=== PATIENT | male | born 1960 | race Caucasian/White ===

== ENCOUNTER 2017-09-12 09:16 | Emergency (ER) | payer SELFPAY ==
[2017-09-12 09:21] VITALS: RESP 18
--- NOTE | 2017-09-12 09:30 | CPEKG ---
Heart Rate: 69 RR Interval: 870 P-R Interval: 180 QRSD Interval: 76 QT Interval: 376 QTC Interval: 403 P [place]: 65 QRS [place]: 39 T Wave [place]: 38 EKG Severity - NORMAL ECG - EKG Impression: SINUS RHYTHM Electronically Signed By: Izzy Aguila 12-Sep-2017 15:29:57
[2017-09-12] MEDS ORDERED: NS 1,000 ML IV ONE (09:31)
[2017-09-12 09:40] LABS: PLATELET COUNT 233 10^3/uL (150-400)
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
[2017-09-12 11:13] VITALS: BP 146/97; PULSE 83; TEMP 98.2; O2SAT 96
== END 2017-09-12 11:12 | disposition home or self-care (01) ==
DX: R56.9 Unspecified convulsions (principal); F17.200 Nicotine dependence, unspecified, uncomplicated; E86.9 Volume depletion, unspecified

== ENCOUNTER → 2017-10-23 | Outpatient (CLI) | payer MEDICAID ==
--- NOTE | 2017-10-24 10:59 | CPEEG ---
[f rep st] ELECTROENCEPHALOGRAM DATE OF STUDY: 10/23/2017 INTERPRETATION: This EEG is abnormal due to the presence of potentially epileptogenic abnormalities over the right temporal head region. 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 In addition, there is a mild degree of focal slowing over the right temporal head region. These findings are consistent with a mild focal disturbance of cerebral function in these regions. REPORT: This EEG contained 9 Hz alpha activity over the posterior head regions. There was a mild degree of focal slowing over the right temporal head region consisting of intermittent polymorphic theta frequency activity. The primary feature of this recording was the presence of right temporal sharp waves , maximal at electrodes T4 and F8. These were present at baseline with continued activation during drowsiness and sleep. There was no additional activation with photic stimulation or hyperventilation. The findings of this EEG were communicated directly with the primary neurologic provider, NICOLLE Castro. /[id number]/MODL MTDD
== END ==
LOC: FCPNEURO 10:14
PROVIDERS: ATTEND Psychiatry & Neurology Neurology
DX: R40.4 Transient alteration of awareness (principal); R94.09 Abnormal results of other function studies of central nervous system

== ENCOUNTER → 2018-01-27 | Outpatient (CLI) | payer MEDICAID | LOC: FIMAGING 14:18 | PROVIDERS: ATTEND Surgery | DX: R22.1 Localized swelling, mass and lump, neck (principal) ==

== ENCOUNTER 2018-02-11 06:31 | Day surgery (SDC) | payer MEDICAID ==
[2018-02-11] MEDS ORDERED: LR 1,000 ML IV ONE (06:44)
[2018-02-11] MEDS ORDERED: NA BICARBONATE 50 MEQ/50 ML VIAL ONE (06:58)
[2018-02-11] MEDS ORDERED: BUPIVACAINE 0.25% 30 ML SDV ONE (06:58)
[2018-02-11] MEDS ORDERED: LIDOCAINE 1% 300 MG/30 ML SDV ONE (06:58)
[2018-02-11] MEDS ORDERED: MIDAZOLAM 2 MG/2 ML VIAL IVP ONE (08:07)
[2018-02-11] MEDS ORDERED: ceFAZolin 2 GM/DEXTROSE 100 ML IV ONE (08:13)
--- NOTE | 2018-02-11 08:13 | PDHPUP ---
History & Physical Update H&P update statement: This history and physical update is based on an assessment of the patient which was completed after admission or registration (within 24 hours), but prior to the surgery/procedure. H&P update: H&P reviewed & patient examined, no change in patient's condition since H&P completed
[2018-02-11] MEDS ORDERED: MIDAZOLAM 2 MG/2 ML VIAL ONE (08:14)
--- NOTE | 2018-02-11 08:14 | PDANEPAE ---
ANE History of Present Illness Right neck mass ANE Past Medical History - Cardiovascular History Hx Hypertension: No Hx Arrhythmias: No Hx Chest Pain: No Hx Coronary Artery / Peripheral Vascular Disease: No Hx CHF / Valvular Disease: No Hx Palpitations: No - Pulmonary History Hx COPD: No Hx Asthma/Reactive Airway Disease: No Hx Recent Upper Respiratory Infection: No Hx Oxygen in Use at Home: No Hx Sleep Apnea: No Sleep Apnea Screening Result - Last Documented: Negative - Neurologic History Hx Cerebrovascular Accident: No Hx Seizures: Yes Hx Dementia: No Neurologic History Comment: vimpat - Endocrine History Hx Diabetes: No Hypothyroid: No Hyperthyroid: No - Renal History Hx Renal Disorders: No - Liver History Hx Hepatic Disorders: No - Neurological & Psychiatric Hx Hx Neurological and Psychiatric Disorders: No - Cancer History Hx Cancer: No - Congenital Disorder History Hx Congenital Disorders: No - GI History GERD: no Hx Gastrointestinal Disorders: No - Other Health History Other Health History: none - Chronic Pain History Chronic Pain: No - Surgical History Prior Surgeries: none ANE Review of Systems Review of Systems: - Exercise capacity METS (RN): 6 METS - Systems Respiratory: Reports: no symptoms Gastrointestinal: Reports: no symptoms ANE Patient History - Allergies Allergies/Adverse Reactions: No Known Allergies Allergy (Verified 02/10/18 16:48) - Home Medications Home Medications: Lacosamide 02/10/18 [Last Taken 02/10/18] - NPO status NPO Status: no food or drink >8 hours NPO Since - Liquids (Date): 02/10/18 NPO Since - Liquids (Time): 23:55 NPO Since - Solids (Date): 02/10/18 NPO Since - Solids (Time): 23:55 - Anes Hx Anes Hx: no prior problems - Smoking Hx Smoking Status: Heavy smoker Marijuana use: Yes - Alcohol Use Alcohol Use: Other (4 to 5 / week) - Family Anes Hx Family Anes Hx: none Family Hx Anesthesia Complications: none ANE Labs/Vital Signs - Vital Signs Blood Pressure: 129/92 Heart Rate: 72 Respiratory Rate: 16 O2 Sat (%): 96 Height: 193.04 cm Weight: 88.451 kg ANE Physical Exam - Airway Neck exam: FROM Mallampati Score: Class 1 Mouth exam: poor dentition - Pulmonary Pulmonary: no respiratory distress, no rales or rhonchi - Cardiovascular Cardiovascular: regular rate and rhythym, no murmur, rub, or gallop ANE Anesthesia Plan Anesthesia Plan: GA w LMA
[2018-02-11] MEDS ORDERED: CEFAZOLIN 2 GM/DEXTROSE/100 ML BAG IV ONE (08:15)
[2018-02-11] MEDS ORDERED: PROPOFOL/EMULSION 500 MG/50 ML BOTTLE IV ONE ×2 (08:19)
[2018-02-11] MEDS ORDERED: fentaNYL 250 MCG/5 ML INJ ONE (08:19)
[2018-02-11] MEDS ORDERED: fentaNYL 100 MCG/2 ML INJ ONE (08:38)
[2018-02-11] MEDS ORDERED: DEXAMETHASONE 4 MG/ML VIAL ONE (08:53)
[2018-02-11] MEDS ORDERED: GLYCOPYRROLATE 0.2 MG/1 ML VIAL ONE (09:39)
[2018-02-11] MEDS ORDERED: ONDANSETRON 4 MG/2 ML VIAL ONE (09:40)
[2018-02-11] MEDS ORDERED: oxyCODONE IR 5 MG TAB PO PRN (09:48)
[2018-02-11] MEDS ORDERED: fentaNYL 100 MCG/2 ML INJ IVP PRN (09:48)
[2018-02-11] MEDS ORDERED: ACETAMINOPHEN 500 MG TAB PO PRN (09:48)
[2018-02-11] MEDS ORDERED: NALOXONE HCL 0.4 MG/ML INJ IVP PRN (09:48)
[2018-02-11] MEDS ORDERED: HYDROCODONE/APAP 5/325 TAB PO PRN (09:48)
[2018-02-11] MEDS ORDERED: HYDROmorphONE/DILAUDID 1 MG/ML INJ IVP PRN (09:48)
[2018-02-11] MEDS ORDERED: ONDANSETRON 4 MG/2 ML VIAL IVP PRN (09:48)
[2018-02-11] MEDS ORDERED: ALBUTEROL 3 ML DEYVIAL IH PRN (09:48)
--- NOTE | 2018-02-11 09:49 | POSTOPPROG ---
Post Op Note Date of Operation: 02/11/18 Surgeon: Rojelio Nam Anesthesiologist: Dr. Lazcano Anesthesia: LMA Pre-op Diagnosis: R neck mass Post-op Diagnosis: same Procedure: Excision R neck mass Inf/Abcess present in the surg proc area at time of surgery?: No EBL: Minimal
--- NOTE | 2018-02-11 10:10 | GOP ---
[f rep st] OPERATIVE REPORT DATE OF OPERATION: 02/11/2018 SURGEON: Brady Nam MD ANESTHESIA: Laryngeal mask anesthesia. ANESTHESIOLOGIST: Dr. Lazcano. PREOPERATIVE DIAGNOSIS: Right neck mass. POSTOPERATIVE DIAGNOSIS: Right neck mass. PROCEDURE PERFORMED: Excision of right neck mass. FINDINGS: Patient had an approximately 5 cm enlarged lymph node appearing mass. No other lesions we re identified. ESTIMATED BLOOD LOSS: 20 cc. INDICATIONS: 57-year-old male with a history of right neck mass. Fine-needle aspiration demonstrate d lymphatic cells. Ultrasound demonstrated a large vascular mass. Risks and benefits of the procedu re were discussed with the patient, questions were answered. He wished to proceed. DESCRIPTION OF PROCEDURE: Patient was in supine position. After induction of adequate laryngeal mas k anesthesia, patient was prepped and draped in a standard surgical fashion. An oblique incision was made with a 15 blade after injecting 0.5% Marcaine for local anesthesia. Thi s was carried down to subcu tissue with Bovie cautery and blunt dissection. Platysma was divided, an d the area of mass was entered using sharp dissection. The mass was then dissected free using blunt and sharp dissection. There was a small vascular pedicle of the posterior superior aspect of the mas s. This was clamped, divided, and ligated with 2-0 silk tie. This was ligated medially adjacent to the mass itself. No other lesions were noted. The mass was sent fresh for permanent section. The area was thoroughly inspected and palpated. It was then irrigated and aspirated. Hemostasis was achieved with cautery. One small area of bleeding was also controlled with Surgicel. The muscles w ere approximated in layers using 2-0 Vicryl in interrupted fashion. Subcutaneous tissue was approxim ated 3-0 Vicryl in interrupted fashion. The skin was closed with 4-0 Monocryl subcuticular stitch. Wound was sterilely dressed. The patient was extubated and taken to the PACU in stable condition. COMPLICATIONS: None. DRAINS: None. /[id number]/MODL
[2018-02-11 11:02] VITALS: BP 127/85
--- NOTE | 2018-02-11 13:15 | POSTANESTH ---
Post Anesthetic Evaluation Cardiovascular Status: Normal, Stable Respiratory Status: Normal, Stable Level of Consciousness/Mental Status: Can Participate in Eval Pain Control: Adequate, Prn Tx Ordered Complications Possibly Related to Anesthesia: None Noted
== END 2018-02-11 11:18 | disposition home or self-care (01) ==
LOC: FSGY 06:31
PROVIDERS: ATTEND Surgery
PROC: 0JB40ZZ Excision of Right Neck Subcutaneous Tissue and Fascia, Open Approach (ICD-10-PCS; principal; 2018-02-11 08:15)
DX: C76.0 Malignant neoplasm of head, face and neck (principal); F17.210 Nicotine dependence, cigarettes, uncomplicated
CPT/HCPCS: 88184-90; 88185-91; J0690; J1100; J2250; J2405; J2704; J3010

== ENCOUNTER 2018-03-25 20:48 | Emergency (ER) | payer OTHER, MEDICAID ==
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
[2018-03-25 22:04] VITALS: BP 115/69
== END 2018-03-25 22:03 ==
LOC: EDUNIT#
PROC: 0HQ0XZZ Repair Scalp Skin, External Approach (ICD-10-PCS; principal; 2018-03-25)
DX: S01.81XA Laceration without foreign body of other part of head, initial encounter (principal); F10.920 Alcohol use, unspecified with intoxication, uncomplicated; V48.5XXA Car driver injured in noncollision transport accident in traffic accident, initial encounter; Y92.9 Unspecified place or not applicable; Y93.9 Activity, unspecified; Y99.9 Unspecified external cause status

== ENCOUNTER 2018-06-13 09:59 | Day surgery (SDC) | payer MEDICAID ==
[2018-06-13] MEDS ORDERED: GLUCAGON HCL 1 MG VIAL IVP PRN (11:07)
[2018-06-13] MEDS ORDERED: ceFAZolin 2 GM/DEXTROSE 100 ML IV ONE (11:07)
[2018-06-13] MEDS ORDERED: FLUMAZENIL 0.5 MG/5 ML MDV IVP PRN (11:07)
[2018-06-13] MEDS ORDERED: fentaNYL 100 MCG/2 ML INJ IVP PRN (11:07)
[2018-06-13] MEDS ORDERED: MIDAZOLAM 2 MG/2 ML VIAL IVP PRN (11:07)
[2018-06-13] MEDS ORDERED: NALOXONE HCL 0.4 MG/ML INJ IVP PRN (11:07)
[2018-06-13 11:14] LABS: INR 1.01 (0.83-1.16); PROTIME(PATIENT) 13.5 SEC (12.0-15.0)
[2018-06-13] MEDS ORDERED: NS 1,000 ML IV SCH (11:15)
[2018-06-13] MEDS ORDERED: CEFAZOLIN 2 GM/DEXTROSE/100 ML BAG IV ONE (13:38)
[2018-06-13] MEDS ORDERED: fentaNYL 100 MCG/2 ML INJ ONE (13:38)
[2018-06-13] MEDS ORDERED: NALOXONE HCL 0.4 MG/ML INJ ONE (13:38)
[2018-06-13] MEDS ORDERED: MIDAZOLAM 2 MG/2 ML VIAL ONE ×2 (13:38→14:30)
[2018-06-13] MEDS ORDERED: FLUMAZENIL 0.5 MG/5 ML MDV IVP ONE (13:38)
[2018-06-13] MEDS ORDERED: LIDOCAINE 1% 300 MG/30 ML SDV ONE (14:04)
[2018-06-13] MEDS ORDERED: IOPAMIDOL (ISOVUE-300) 100 ML BTL ONE ×2 (14:05→19:51)
[2018-06-13] MEDS ORDERED: LIDOCAINE 2% JELLY 20 ML (UROJECT) ONE (14:05)
[2018-06-13] MEDS ORDERED: GLUCAGON HCL 1 MG VIAL ONE (14:33)
--- NOTE | 2018-06-13 15:00 | PDRADPRE ---
Radiology History & Physical Indication for procedure: cancer Home medications: Vimpat 150 PO BID 03/25/18 [Last Taken 06/13/18 08:00] Allergies/Adverse Reactions: No Known Allergies Allergy (Verified 02/10/18 16:48) Mental status: A&Ox3
--- NOTE | 2018-06-13 15:00 | PDPROPOC ---
Sedation Plan of Care ASA Classification: ASA 3 Mallampati Score: Class 2 Mallampati Reference Image:
--- NOTE | 2018-06-13 15:07 | PDRADPN ---
Radiology Procedure Note Date of Procedure: 06/13/18 Radiologist: Juanpablo Tillman Anesthesia: IV Sedation Pre-op Diagnosis: neck mass Post-op Diagnosis: same Procedure: attempted gastrostomy tube placement Finding(s): despite almost 1000cc air placement, stomach remained tucked under the ribs. No safe access percutaneously. refer for surgical placement. Inf/Abcess present in the surg proc area at time of surgery?: No
[2018-06-13] MEDS ORDERED: ACETAMINOPHEN 325 MG TAB PO PRN (15:08)
[2018-06-13] MEDS ORDERED: ONDANSETRON 4 MG/2 ML VIAL IVP PRN (15:08)
[2018-06-13 15:10] VITALS: BP 108/74
== END 2018-06-13 15:55 | disposition home or self-care (01) ==
LOC: FIMAGING 09:59
PROVIDERS: ATTEND Radiology Diagnostic Radiology
DX: C76.0 Malignant neoplasm of head, face and neck (principal)
CPT/HCPCS: J0690; J1610; J1644; J2250; J2310; J3010; Q9967

== ENCOUNTER 2018-06-23 12:51 | Day surgery (SDC) | payer MEDICAID ==
[2018-06-23] MEDS ORDERED: ceFAZolin 2 GM/DEXTROSE 100 ML IV ONE (13:20)
[2018-06-23] MEDS ORDERED: LR 1,000 ML IV ONE (13:21)
[2018-06-23] MEDS ORDERED: BUPIVACAINE 0.5% 30 ML SDV ONE (14:04)
[2018-06-23] MEDS ORDERED: MIDAZOLAM 2 MG/2 ML VIAL IVP ONE (14:18)
[2018-06-23] MEDS ORDERED: fentaNYL 100 MCG/2 ML INJ ONE ×2 (14:22→16:03)
[2018-06-23] MEDS ORDERED: ROCURONIUM 50 MG/5 ML VIAL ONE (14:24)
[2018-06-23] MEDS ORDERED: DEXAMETHASONE 4 MG/ML VIAL ONE ×2 (14:24)
[2018-06-23] MEDS ORDERED: ONDANSETRON 4 MG/2 ML VIAL ONE (14:24)
[2018-06-23] MEDS ORDERED: PROPOFOL 200 MG/20 ML VIAL ONE (14:24)
[2018-06-23] MEDS ORDERED: LIDOCAINE 2% 5 ML SDV ONE (14:25)
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
[2018-06-23] MEDS ORDERED: fentaNYL 100 MCG/2 ML INJ IVP PRN (15:24)
[2018-06-23] MEDS ORDERED: PROMETHAZINE HCL 25 MG/ML INJ IVP PRN (15:24)
[2018-06-23] MEDS ORDERED: PHENYLEPHRINE HCL 100 MCG/ML SYR IVP PRN (15:24)
[2018-06-23] MEDS ORDERED: DIAZEPAM 5 MG/ML 1 ML SYR IVP PRN (15:24)
[2018-06-23] MEDS ORDERED: LABETALOL HCL 20 MG/4 ML INJ IVP PRN (15:24)
[2018-06-23] MEDS ORDERED: ACETAMINOPHEN 500 MG TAB PO PRN (15:24)
[2018-06-23] MEDS ORDERED: oxyCODONE IR 5 MG TAB PO PRN ×2 (15:24→17:55)
[2018-06-23] MEDS ORDERED: METOCLOPRAMIDE 10 MG/2 ML VIAL IVP PRN ×2 (15:24→17:55)
[2018-06-23] MEDS ORDERED: ALBUTEROL 3 ML DEYVIAL IH PRN (15:24)
[2018-06-23] MEDS ORDERED: LR 500 ML IV PRN (15:24)
[2018-06-23] MEDS ORDERED: HYDROmorphONE/DILAUDID 2 MG/ML INJ IVP PRN (15:24)
[2018-06-23] MEDS ORDERED: NALOXONE HCL 0.4 MG/ML INJ IVP PRN (15:24)
[2018-06-23] MEDS ORDERED: MEPERIDINE 25 MG/0.5 ML AMP IVP PRN (15:24)
[2018-06-23] MEDS ORDERED: NEOSTIGMINE METHYLSULFATE 5 MG/5 ML SYR ONE (16:12)
[2018-06-23] MEDS ORDERED: GLYCOPYRROLATE 0.2 MG/1 ML VIAL ONE ×2 (16:12)
--- NOTE | 2018-06-23 16:29 | POSTOPPROG ---
Post Op Note Date of Operation: 06/23/18 Surgeon: Jeremiah Argueta Medical Assistant Cardiology: KIANA Owen Anesthesiologist: Kary Anesthesia: GET(General Endotracheal) Pre-op Diagnosis: Head and neck cancer Post-op Diagnosis: same Procedure: Laparoscopic Gastrostomy tube placement Findings: 20Fr Gastrostomy tube, 4cm at skin Inf/Abcess present in the surg proc area at time of surgery?: No EBL: Minimal Drains: Other (20Fr gastrostomy tube)
[2018-06-23] MEDS ORDERED: HYDROmorphONE/DILAUDID 1 MG/ML INJ IVP PRN (17:55)
[2018-06-23] MEDS ORDERED: ONDANSETRON 4 MG/2 ML VIAL IVP PRN (17:55)
[2018-06-23] MEDS ORDERED: ACETAMINOPHEN 325 MG TAB PO PRN (17:55)
[2018-06-23] MEDS ORDERED: D5W 1/2 NS W/ 20 KCl/L 1,000 ML IV SCH (18:00)
[2018-06-23 20:43] VITALS: BP 149/77
[2018-06-23] MEDS ORDERED: IBUPROFEN 600 MG TAB PO SCH (22:00)
--- NOTE | 2018-06-26 17:04 | GOP ---
DATE OF OPERATION: 06/23/2018 SURGEON: Jeremiah Argueta MD CUTTING TABLE OPERATOR FIRST: Claudia Owen, KIANA ANESTHESIA: General endotracheal. ANESTHESIOLOGIST: Dr. Sloan Kellogg. PREOPERATIVE DIAGNOSIS: Metastatic head and neck cancer. POSTOPERATIVE DIAGNOSIS: Metastatic head and neck cancer. PROCEDURE PERFORMED: Laparoscopic gastrostomy tube placement. FINDINGS: SPECIMENS: None. ESTIMATED BLOOD LOSS: 10 cc. INDICATIONS: The patient is a 58-year-old male with metastatic head and neck cancer with unknown martina cielo. He is planning to start head and neck chemoradiation within the next week and requires durable enteral access prior to doing so. DESCRIPTION OF PROCEDURE: The patient was greeted in the preoperative suite. Once again, risks, daniel efits, and alternatives were discussed. Consent was signed. He was then brought back to the operati ve suite, placed on the OR table in supine position. After all anesthesia machines, including SCDs w ere on and functioning, a World Health Organization time-out was performed. After successful inducti on of general anesthesia, the patient's abdomen was prepped and draped in the typical sterile fashion . I commenced the procedure by making an infraumbilical cutdown through which the Veress needle was pas sed. I achieved pneumoperitoneum to 15 mmHg CO2, which was well tolerated by the patient. Through t his, I then inserted a 5 mm Visiport. Once successfully in the abdomen, I placed 2 additional 5 mm t rocars, 1 in the right upper 1 in the right lower quadrant, all under direct visualization. The frida ent was placed in gentle Trendelenburg position. I turned my attention toward the left upper quadrant. I successfully retracted the transverse colon inferiorly and identified the greater curvature of the stomach. The stomach was then brought into th e operative field. Laparoscopically, I placed a pursestring suture of 2-0 silk. Once a pursestring was placed just above this and where the gastrostomy tube was to come out, I placed an additional 5 m m trocar. Through this, I used electrocautery and successfully made a gastrotomy in the central portion of the pursestring. Once this was done, I ensured that this was within the lumen of the stomach. The 5 mm trocar in the left upper quadrant was removed and the 20-Grenadian gastrostomy tube was brought into the operative field and placed into the stomach. The pursestring was then tied down laparoscopically, n zeinab excellent approximation of the stomach around the tube itself. The balloon was then inflated w ith 10 cc and checked to ensure that there were no leaks. After this was done, I placed 3 stay sutures, all 2-0 silk, triangulating around the gastrostomy tube , itself. Via separate stab incisions from the belly, the Daryl Dannie was used to grab these sta y sutures and bring them up the abdominal wall. I dropped my pneumoperitoneum to 5 mmHg while visual izing that the stomach came to the abdominal wall without any problem. The stay sutures were then ti ed down, again laparoscopically identifying that the tube was in appropriate position with good appos ition of the stomach to the anterior abdominal wall. They were then tied down. The tube was flushed with sterile saline. It both flushed and withdrew appropriately. Pneumoperiton eum was evacuated. My 5 mm trocars were removed. Skin was closed with Monocryl, over which Dermabon d was placed. A sterile dressing was then placed over the G-tube, and the patient was successfully e xtubated and taken to the PACU in satisfactory condition. DRAINS: 20-Grenadian gastrostomy tube into stomach. COUNTS: All counts were reported as correct x2 thank you very much this is dictation for Paddy Dobbins 3 11/26/2001. /[id number]/MODL
== END 2018-06-23 18:25 | disposition home or self-care (01) ==
LOC: FSGY 12:51 → F3N 17:55 → UNDOADMOB 17:55 → F1N 17:55 → UNDOADMOB 18:02 → F3N 18:02 → UNDODISOB 18:25 → FSGY 18:25
PROVIDERS: ATTEND Surgery
PROC: 0DH64UZ Insertion of Feeding Device into Stomach, Percutaneous Endoscopic Approach (ICD-10-PCS; principal; 2018-06-23 14:30)
DX: C76.0 Malignant neoplasm of head, face and neck (principal); K59.00 Constipation, unspecified; F17.210 Nicotine dependence, cigarettes, uncomplicated; G40.909 Epilepsy, unspecified, not intractable, without status epilepticus
CPT/HCPCS: J0690; J1100; J2250; J2405; J2704; J2710; J3010

== ENCOUNTER 2018-08-12 10:22 | Inpatient (IN) | payer MEDICAID ==
[2018-08-12] MEDS ORDERED: NS 1,000 ML IV ONE (11:45)
--- NOTE | 2018-08-12 11:48 | EDPHY ---
General - History Smoking Status: Heavy smoker Time Seen by Provider: 08/12/18 11:40 Narrative: 1159: I consulted this patient with KIANA Gunter. This patient has a diffusely tender abdomen which is consistent with Keren's previous exam. I agree with the course of this treatment. (Ubaldo Cantor) CLINICAL IMPRESSION: Abdominal pain, constipation, dehydration ASSESSMENT/PLAN: Patient is a 58-year-old male with significant history of head and neck squamous cell carcinoma, daily radiation and weekly chemotherapy. Patient is chronically ill appearing however not toxic-appearing. His abdomen is soft, distended with generalized tenderness to palpation, mild voluntary guarding throughout. CBC revealed neutropenia. His vital signs were reviewed, no evidence of sepsis or serious bacterial illness. Metabolic panel with mildly elevated BUN consistent with dehydration. CT abdomen and pelvis with evidence of constipation, no evidence of obstruction or perforation. The patient has been managed by Oncology for the last several weeks for ongoing dehydration and constipation. He will be admitted to the hospitalist service for failure to thrive, dehydration and constipation. I spoke directly with Buffy Webster , he will be admitted to Dr. Brito. On repeat examination prior to transfer to the floor the patient reports feeling mildly better, his abdomen remained soft without evidence of a surgical abdomen and his vital signs remained stable. DIFFERENTIAL DX: Abdominal pain including but not limited to appendicitis, cholecystitis, gastritis and urinary tract infection. ED COURSE: 1145: Case discussed with Dr. Cantor, he will also evaluate this patient. 1315: Case discussed with radiologist, CT abdomen and pelvis positive for large volume constipation without evidence of perforation or obstruction. Small amount of free fluid noted. 1346: On repeat examination the patient is much more comfortable appearing, his abdomen is soft without peritoneal signs. He reports feeling better. CHIEF COMPLAINT: Abdominal pain, constipation HPI: Patient is a 58-year-old male with significant medical history of squamous cell carcinoma currently under the care of Dr. Pimentel receiving radiation daily and chemotherapy every Saturday. Patient reports for the last several weeks he has had difficulty with bowel movements, last normal bowel movement was 2-3 weeks ago. Patient has had progressive and increasing abdominal pain and distention. He has been trying to manually disimpact himself however is not getting much stool out. Patient reports constant abdominal pain "feeling like his guts are going to explode". He denies any fevers, chills, nausea or vomiting. His appetite is generally low and unchanged. He denies any chest pain or shortness of breath. Patient denies any testicular pain or testicular swelling. Patient reports he has never had a colonoscopy. No melena or hematochezia. PMH: Squamous cell carcinoma, seizure disorder Social History: Marijuana regular, cigarette smoking current, denies alcohol REVIEW OF SYSTEMS: All other systems negative Constitutional: Decreased appetite. No fever, no chills. Eyes: No discharge, vision change ENT: No sore throat, congestion, ear pain. Cardiovascular: No chest pain, no palpitations. Respiratory: No cough, no shortness of breath. Gastrointestinal: Abdominal pain, constipation. Denies nausea or vomiting. Genitourinary: No hematuria, dysuria, flank pain, pelvic pain Musculoskeletal: No back pain, joint swelling, joint pain, myalgias. Skin: No rashes, color change. Neurological: No headache, dizziness, weakness. PHYSICAL EXAM: General Appearance: Chronically ill-appearing, uncomfortable appearing however not toxic-appearing HENT: Normocephalic, atraumatic. Bilateral external ears are normal. Bilateral tympanic membranes are normal with pearly tolbert reflex. Nares are clear, mucosa is pink. Oropharynx is clear, mucosa is dry, uvula is midline. There is no tonsillar enlargement or exudate. The dentition is normal. Eyes: PERRLA, no acute vision change, nystagmus, swelling, discharge, pain or photosensitivity. Conjunctiva pink, no pallor or injection Neck: Supple, nontender, no lymphadenopathy, no midline pain, FROM, no meningismus. Respiratory: There are no retractions, lungs are clear to auscultation. Cardiac: Regular rate and rhythm, no murmurs or gallops. Gastrointestinal: Midline PEG tube without surrounding erythema, induration or drainage. Patient's abdomen is soft, mildly distended. His generalized tenderness to palpation with mild voluntary guarding throughout. There is no rigidity. Bowel sounds are present. Neurological: Alert and oriented x 3, CN 2-12 grossly intact, normal gait no ataxia, DTR's intact, normal sensation and strength Skin: Warm, dry, no rashes, no nodules on palpation. Musculoskeletal: Extremities are symmetrical, full range of motion, no tenderness, deformity, swelling, or erythema. Psychiatric: Patient is oriented X 3, there is no agitation. MEDICAL DECISION MAKING: Patient was seen independently. Secondary supervising physician at time of evaluation was Dr. Cantor, he also evaluated this patient . Diagnosis: Abdominal pain, constipation . New, requires workup Summary: See Assessment and Plan for summary of ED visit Clinical lab tests: ordered / reviewed. Independent visualization of images, tracing, or specimens: Yes. Decision to obtain medical records or history from someone other than the patient: Yes Review / Summarize previous medical records: Yes Discussed patient with another provider: Yes, Dr. Cantor Patient Progress: Stable, admit . (Linh Ozuna) - Diagnostics Imaging Results: Imaging Impressions Abdomen CT 08/12/18 11:43 Impression: 1. Moderate constipation. No bowel obstruction. 2. Normal appendix. 3. Trace free fluid in the low pelvis. No localized inflammatory process. 4. Well-seated gastrostomy tube. 5. No evidence of intra-abdominal malignancy. Findings discussed with Emergency Department physician dental hygiene administrative assistant, Linh Ozuna PA-C, on 08/12/2018, 13:15. - Objective Vital Signs: Initial Vital Signs Temperature (C) 36.9 C 08/12/18 11:05 Heart Rate 91 08/12/18 11:05 Respiratory Rate 16 08/12/18 11:05 Blood Pressure 127/76 H 08/12/18 11:05 O2 Sat (%) 96 08/12/18 11:05 O2 Delivery Mode Room Air Allergies/Adverse Reactions: No Known Allergies Allergy (Verified 08/12/18 11:04) Home Medications: Medication Instructions Recorded Lacosamide [Vimpat] 150 mg PO BID #0 03/25/18 LORazepam [Ativan (*)] 0.5 mg PO DAILY PRN 08/12/18 Laboratory Results: Laboratory Results 08/12/18 12:00 08/12/18 12:00 08/12/18 08/12/18 08/12/18 12:05 12:00 12:00 WBC 1.87 10^3/uL L 10^3/uL (3.80-9.50) RBC 3.23 10^6/uL L 10^6/uL (4.40-6.38) Hgb 10.7 g/dL L g/dL (13.7-17.5) POC Hgb 10.9 gm/dL L gm/dL (13.7-17.5) Hct 31.4 % L % (40.0-51.0) POC Hct 32 % L % (40-51) MCV 97.2 fL fL (81.5-99.8) MCH 33.1 pg pg (27.9-34.1) MCHC 34.1 g/dL g/dL (32.4-36.7) RDW 12.6 % % (11.5-15.2) Plt Count 95 10^3/uL L 10^3/uL (150-400) MPV 10.4 fL fL (8.7-11.7) Neut % (Auto) Not Reported Lymph % (Auto) Not Reported [place] % (Auto) Not Reported Eos % (Auto) Not Reported Baso % (Auto) Not Reported Nucleat RBC Rel Count Not Reported Absolute Neuts (auto) Not Reported Absolute Lymphs (auto) Not Reported Absolute Monos (auto) Not Reported Absolute Eos (auto) Not Reported Absolute Basos (auto) Not Reported Absolute Nucleated RBC Not Reported Immature Gran % Not Reported Seg Neutrophils % 68.7 % % Band Neutrophils % 5.1 % % Lymphocytes % 13.1 % % Monocytes % 8.1 % % Eosinophils % 2.0 % % Basophils % 3.0 % % Metamyelocytes % 0.0 % % Myelocytes % 0.0 % % Promyelocytes % 0.0 % % Blast Cells % 0.0 % % Immature Gran # Not Reported Absolute Seg Neuts 1.28 10^3/uL L 10^3/uL (1.70-6.50) Absolute Band Neuts 0.10 10^3/uL 10^3/uL (0.00-0.70) Absolute Lymphocytes 0.24 10^3/uL L 10^3/uL (1.00-3.00) Absolute Monocytes 0.15 10^3/uL L 10^3/uL (0.30-0.80) Absolute Eosinophils 0.04 10^3/uL 10^3/uL (0.03-0.40) Absolute Basophils 0.06 10^3/uL 10^3/uL (0.02-0.10) Absolute Metamyelocyte 0.00 10^3/mL 10^3/mL (0.00-0.00) Absolute Myelocytes 0.00 10^3/mL 10^3/mL (0.00-0.00) Absolute Promyelocytes 0.00 10^3/uL 10^3/uL (0.00-0.00) Absolute Plasma Cells 0.00 10^3/uL 10^3/uL (0.00-0.00) Nucleated RBCs 0 /100 WBC /100 WBC (0-0) Absolute Blast Cells 0.00 10^3/uL 10^3/uL (0.00-0.00) Plasma Cells % 0.0 % % Toxic Granulation PRESENT H Platelet Estimate DECREASED L (ADEQ) Echinocytes 1+ H POC Sodium 140 mEq/L mEq/L (135-145) Sodium 137 mEq/L mEq/L (135-145) POC Potassium 3.3 mEq/L mEq/L (3.3-5.0) Potassium 3.5 mEq/L mEq/L (3.5-5.2) POC Chloride 101 mEq/L mEq/L (97-110) Chloride 105 mEq/L mEq/L (97-110) Carbon Dioxide 22 mEq/l mEq/l (22-31) Anion Gap 10 mEq/L mEq/L (6-14) POC BUN 24 mg/dL H mg/dL (7-23) BUN 28 mg/dL H mg/dL (7-23) Creatinine 1.0 mg/dL mg/dL (0.7-1.3) POC Creatinine 1.0 mg/dL mg/dL (0.7-1.3) Estimated GFR > 60 Glucose 92 mg/dL mg/dL (70-100) POC Glucose 93 mg/dL mg/dL (70-100) Calcium 8.9 mg/dL mg/dL (8.5-10.4) Total Bilirubin 0.6 mg/dL mg/dL (0.1-1.4) Conjugated Bilirubin 0.4 mg/dL mg/dL (0.0-0.5) Unconjugated Bilirubin 0.2 mg/dL mg/dL (0.0-1.1) AST 20 IU/L IU/L (17-59) ALT 22 IU/L IU/L (21-72) Alkaline Phosphatase 53 IU/L IU/L (38-126) Total Protein 6.2 g/dL L g/dL (6.3-8.2) Albumin 3.7 g/dL g/dL (3.5-5.0) Lipase 47 IU/L IU/L (23-300) Medications Given: Discontinued Medications Hydromorphone HCl (Dilaudid) 1 mg IVP EDNOW ONE Stop: 08/12/18 12:05 Last Admin: 08/12/18 12:08 Dose: 1 mg Sodium Chloride (Ns) 1,000 mls @ 0 mls/hr IV ONCE ONE PRN Reason: Wide Open Stop: 08/12/18 11:46 Last Admin: 08/12/18 12:08 Dose: 1,000 mls Point of Care Test Results: Chemistry 08/12/18 12:05 POC Sodium 140 mEq/L mEq/L (135-145) POC Potassium 3.3 mEq/L mEq/L (3.3-5.0) POC Chloride 101 mEq/L mEq/L (97-110) POC BUN 24 mg/dL H mg/dL (7-23) POC Creatinine 1.0 mg/dL mg/dL (0.7-1.3) POC Glucose 93 mg/dL mg/dL (70-100) ISTAT H&H 08/12/18 12:05 POC Hgb 10.9 gm/dL L gm/dL (13.7-17.5) POC Hct 32 % L % (40-51) Departure - Departure Disposition: [facility] Inpatient Acute Clinical Impression: Dehydration
[2018-08-12] MEDS ORDERED: HYDROmorphONE/DILAUDID 2 MG/ML INJ IVP ONE (12:04)
[2018-08-12] MEDS ORDERED: IOHEXOL 350mgI/ML (OMNIPAQUE) 150 ML BTL IV ONE (12:23)
[2018-08-12 12:31] LABS: PLATELET COUNT 95 10^3/uL (150-400)
[2018-08-12] MEDS ORDERED: PEG 3350/NA SULF,BICARB,CL/KCL (GAVILYTE-G) 4000 ML BTL PO ONE (13:54)
[2018-08-12] MEDS ORDERED: LORazepam 2 MG/ML INJ IVP PRN (13:55)
[2018-08-12] MEDS ORDERED: ACETAMINOPHEN 325 MG TAB PO PRN (13:55)
[2018-08-12] MEDS ORDERED: PROMETHAZINE HCL 25 MG/ML INJ IVP PRN (13:55)
[2018-08-12] MEDS ORDERED: ONDANSETRON 4 MG/2 ML VIAL IVP PRN (13:55)
[2018-08-12] MEDS ORDERED: HYDROmorphONE/DILAUDID 1 MG/ML INJ IVP PRN (13:55)
--- NOTE | 2018-08-12 14:40 | GHP ---
[f rep st] HISTORY AND PHYSICAL DATE OF ADMISSION: 08/12/2018 The patient is a pleasant 58-year-old gentleman with a history of squamous cell carcinoma of the head and neck, diagnosed in September of this year. He is currently undergoing chemotherapy and radiation. He presents to the hospital with lower abdomi nal pain and inability to have a bowel movement in a couple of weeks. He gets tube feeds at home as he has dysphagia. It is not clear that he is taking bowel medicine at home. He is not taking pain medicines, but he do es take Ativan periodically. He has not had fever, chills, cough, sputum, nausea, vomiting, or diarr hea. It sounds like he has been trying to disimpact himself and he feels a firm stool ball in his re ctum, but he is unable to do it, so he described last night as miserable with lower abdominal pain an d cramping so he seeks care here. He also notes poor p.o. intake. REVIEW OF SYSTEMS: Complete 10-point review of systems conducted and negative except as noted in the HPI. PAST MEDICAL HISTORY: 1. Squamous cell carcinoma of the head and neck. 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 He is undergoing chemotherapy and radiation. 2. History of seizure disorder of uncertain etiology. ALLERGIES: No known drug allergies. MEDICATIONS: Lacosamide and Ativan. SOCIAL HISTORY: He is down to 3 cigarettes a day. He has been a smoker for a long time. He was a h eavy drinker, but he quit in September. He was previously in the . Lives in [place]. He work s building things. FAMILY HISTORY: Reviewed and unremarkable. PHYSICAL EXAMINATION: VITAL SIGNS: Temp 36.9, blood pressure 127/76, pulse 91, breathing 16 times a minute, 96% on room air. GENERAL: No acute distress. HEENT: Sclerae anicteric. Oropharynx clear . Mucous membranes are dry. NECK: Supple. There are radiation changes in his skin. He does have a surgical scar in his right neck. LUNGS: Clear to auscultation anterolaterally. HEART: S1, S2. ABDOMEN: Soft. There is a PEG tube in the midline that is clean, dry, and intact without purulence. It is tender without peritoneal signs. LOWER EXTREMITIES: No edema. Calves nontender. SKIN: Wi thout rash. NEUROLOGIC: Nonfocal. LABS: White count is low at 1.87, hematocrit 31.4 which is lower than it has been but this is in the setting of chemotherapy. Platelets are 95, which is in the mid range of where he has been. Sodium 137, potassium 3.5, chloride 105, bicarb 22, BUN 28, creatinine 1.0. LFTs normal. Protein is low at 6.2, albumin is 3.2. CT of the abdomen image is reviewed and interpreted by me shows constipation w ith a large fist-sized stool ball in the rectum without evidence of perforation or free air. I have discussed the case with NICOLLE Gunter of the Emergency Department. ASSESSMENT/PLAN: A 58-year-old gentleman with head and neck cancer, dysphagia, presents with constip ation and failure to thrive. 1. Constipation. The patient needs management with enema. I have written for a soapsuds enema as w ell as some mineral oil enemas. We will get that started and allow that to sit for a bit and then st arted him on a GoLYTELY prep where I have instructed the nurse to give 100 cc an hour until he has a bowel movement. 2. Head and neck cancer. He is getting chemotherapy on Wednesdays. He perhaps may need to miss thi s, but this could be done as an inpatient. The emergency department has reached out to Oncology. 3. Seizure disorder. Continue his lacosamide, prophylaxis, sequential compression devices, moderate risk. DISPOSITION: Inpatient status. I suspect it will require greater than 2 midnights to manage this fa ilure to thrive and severe constipation. /[id number]/MODL
[2018-08-12] MEDS: HYDROmorphONE/DILAUDID 2 MG/ML INJ IVP PRN (19:40)
[2018-08-12] MEDS: NS 1,000 ML IV SCH (20:07)
[2018-08-12] MEDS: LORazepam 0.5 MG TAB PO PRN (20:11)
[2018-08-12] MEDS: LACOSAMIDE 50 MG TAB PO SCH (20:11)
[2018-08-13] MEDS: HYDROmorphONE/DILAUDID 2 MG/ML INJ IVP PRN ×3 (02:23→19:38)
[2018-08-13 05:32] LABS: PLATELET COUNT 91 10^3/uL (150-400)
--- NOTE | 2018-08-13 08:46 | HOSPPROG ---
Hospitalist Progress Note Assessment/Plan: 58 yo M w head and neck SCC here w severe constipation constipations: continue enemas and slow golytely prep cough: flu swab abd pain: 2/2 #1 SCC: due for chemo today proph: add lmwh dispo: inpt Subjective: no bm. some flatus. cough Objective: Vital Signs Temp Pulse Resp BP Pulse Ox 37.0 C 78 16 95/65 L 96 08/13/18 04:00 08/13/18 04:00 08/13/18 04:00 08/13/18 04:00 08/13/18 04:00 Laboratory Results 08/13/18 04:59 08/13/18 04:59 08/12/18 08/13/18 08/14/18 05:59 05:59 05:59 Intake Total 950 Output Total 850 Balance 100 - Physical Exam Constitutional: no apparent distress, appears nourished Eyes: PERRL, anicteric sclera Ears, Nose, Mouth, Throat: moist mucous membranes, hearing normal Cardiovascular: regular rate and rhythym, no murmur, rub, or gallop Respiratory: no respiratory distress, no rales or rhonchi Gastrointestinal: other (bowel sounds present but hypoactive), No guarding, No rebound, No distension Genitourinary: No bourgeois in urethra Skin: warm, normal color Musculoskeletal: full muscle strength Neurologic: AAOx3 ICD10 Worksheet Patient Problems: Problems Problem Status Onset Dehydration Acute Alcohol intoxication Acute Forehead laceration Acute
[2018-08-13] MEDS: LACOSAMIDE 50 MG TAB PO SCH ×2 (09:00→19:38)
--- NOTE | 2018-08-13 10:43 | ASMTCASEMG ---
Living Arrangements What is your living Answers: Alone arrangement? Who do you live with? Type Of Residence What kind of residence do Answers: House you live in? Discharge Plan Comments Coordination Status Comments Notes: Patient is a 58yo single male with head and neck cancer. dysphagia who presents with constipation and failure to thrive. Patient also has a seizure disorder. He is getting chemotherapy on Wednesdays. OT/PT evals have been ordered. D/C plan TBD. CM will follow. Date Signed: 08/13/2018 10:42 AM Electronically Signed By:Shanita Hillman LCSW
--- NOTE | 2018-08-13 11:17 | PDMN ---
Medical Necessity Medical necessity: Pt meets Ip criteria as of 08/12/2018 per and JUAN WINN ( gastroenterology [facility]); est los > 2 mn for ongoing tx and management of constipation in a pt who receives tube feedings at baseline d/t squamous cell carcinoma of the head and neck causing dysphagia; OP attempts at fecal disimpaction failed; requiring enemas, bowel prep regimen, oncology consultation and management of chronic seizure disorder.
[2018-08-13] MEDS: ENOXAPARIN 40 MG/0.4 ML SYR SC SCH (17:31)
[2018-08-13] MEDS: NS 1,000 ML IV SCH (17:57)
[2018-08-13] MEDS: LORazepam 0.5 MG TAB PO PRN (19:38)
[2018-08-14] MEDS: HYDROmorphONE/DILAUDID 2 MG/ML INJ IVP PRN (02:14)
[2018-08-14] MEDS: NS 1,000 ML IV SCH (02:18)
[2018-08-14] MEDS: LACOSAMIDE 50 MG TAB PO SCH ×2 (08:42→23:56)
[2018-08-14] MEDS: ENOXAPARIN 40 MG/0.4 ML SYR SC SCH (09:17)
[2018-08-14] MEDS ORDERED: BISACODYL 10 MG SUPP PR PRN (14:11)
[2018-08-14] MEDS ORDERED: LACTULOSE 20 GM/30 ML UDCUP PO PRN (14:11)
[2018-08-14] MEDS ORDERED: MAGNESIUM HYDROXIDE 30 ML UDCUP PO PRN (14:11)
[2018-08-14] MEDS ORDERED: POLYETHYLENE GLYCOL 3350 17 GM PKT PO PRN (14:11)
--- NOTE | 2018-08-14 16:53 | HOSPPROG ---
Hospitalist Progress Note Assessment/Plan: * Constipation -improved - continue bowel protocol -advance diet * Head and neck squamous cell cancer -d/w Dr. Sanchez -patient requesting chemo while he is here * Dysphagia -NPO - PEG Tube only -advance tube feeds * Pancytopenia -likely due to chemo * Seizure disorder -Vimpat Subjective: Not taking any tube feeds yet. Had big BM this am but thinks there is still more in there Objective: Vital Signs Temp Pulse Resp BP Pulse Ox 37.1 C 61 16 110/69 97 08/14/18 16:00 08/14/18 16:00 08/14/18 16:00 08/14/18 16:00 08/14/18 16:00 Microbiology 08/14/18 02:10 Respiratory Panel (PCR) - Final Nasal, Sinus - Anaerobic Tube/Swab No Organism Detected By Pcr Laboratory Results 08/13/18 04:59 08/13/18 04:59 08/13/18 08/14/18 08/15/18 05:59 05:59 05:59 Intake Total 950 Output Total 850 300 Balance 100 -300 CT scan abd - constipation - Physical Exam Constitutional: no apparent distress, appears nourished, not in pain Cardiovascular: regular rate and rhythym, no murmur, rub, or gallop Respiratory: no respiratory distress, no rales or rhonchi, clear to auscultation Gastrointestinal: normoactive bowel sounds, soft, non-tender abdomen, no palpable masses Skin: no rashes or abrasions, no fluctuance, no induration Neurologic: AAOx3, sensation intact bilaterally Psychiatric: interacting appropriately, not anxious, not encephalopathic, thought process linear ICD10 Worksheet Patient Problems: Problems Problem Status Onset Alcohol intoxication Acute Forehead laceration Acute Dehydration Acute
--- NOTE | 2018-08-14 20:32 | GCON ---
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 The patient is a very pleasant 58-year-old male diagnosed with a squamous cell carcinoma of the head and neck in January of 2018. Initial ultrasound in January of 2018 showed a 5.2 cm mass lateral to the rig ht submandibular gland. FNA of the mass was negative. He had a biopsy of the right lymph node, whic h demonstrated a moderately differentiated squamous cell carcinoma that was HPV positive. A PET-CT i n February 2018 showed a hypermetabolic right level 2 lymph node consistent with maxime disease. No martina cielo site was clearly identified; however, potential sites included the right anterior floor of the m outh and the lingual buccal sulcus in the left oropharynx. In April, he had direct laryngoscopy wi biopsies, nasopharyngoscopy with biopsies and a tonsillectomy on April 22 was negative. The frida ent was started on radiation therapy with concurrent low-dose weekly cisplatin on July 02. He was initially receiving 40 mg/sq m weekly, and more recently the dose was decreased to 20 mg/sq m. H is last dose was August 06. The patient was scheduled for chemotherapy yesterday, but was admitte d with symptoms of increasing abdominal pain and constipation. He has continued with radiation. He is receiving tube feedings via a gastrostomy. He complains of mucositis and painful swallowing. He has been extremely constipated, and was admitted for further evaluation of that. PAST MEDICAL HISTORY: 1. History of squamous cell carcinoma of the head and neck as outlined above. 2. History of seizure disorder. ALLERGIES: None known. SOCIAL HISTORY: He smokes 3 cigarettes a day. He has a long history of smoking. He was a heavy dri nker, but quit in September. He previously worked in the . He lives in [place] and lives by imself. FAMILY HISTORY: Noncontributory. REVIEW OF SYSTEMS: Ten-point review of systems is negative other HPI. PHYSICAL EXAM: GENERAL: He is a cachectic male appearing older than his stated age, lying comfortab ly in bed. VITAL SIGNS: Blood pressure 110/69, heart rate 61, O2 sat 97% on 2 L. He is afebrile. HEENT: Pupils are equal. Sclerae anicteric. Oropharynx with dry mucous membranes and evidence of m ucositis in the posterior pharynx. There is a small area suggestive of thrush in the posterior phary nx. LUNGS: Clear to auscultation with scattered crackles. HEART: Regular rate. ABDOMEN: Soft, s lightly tender to palpation with a G-tube in place. EXTREMITIES: No edema. LABORATORY DATA: White blood cell count 1.95, hematocrit 29.2, platelets are 91,000, absolute neutro eloisa count is 1.7. Metabolic panel is unremarkable. CT scan of the abdomen on admission revealed mo derate constipation without evidence of a bowel obstruction. There is a well-seated gastrostomy tube . There is no evidence of any intraabdominal malignancy. IMPRESSION AND PLAN: This is a 58-year-old male with locally advanced squamous cell carcinoma of the head and neck, staged as a [place] N2 M0. The tumor is human papillomavirus positive. The patient is be ing treated with curative intent with weekly cisplatin and concurrent radiation therapy. The constip ation seems to be improved since admission with hydration and treatment with laxatives. He is unable to take anything orally and has evidence of mucositis and possibly thrush. We will plan on administ ering this week's chemotherapy with cisplatin at 20 mg/sq m. This likely can not be given until Satu rday. The patient would like to proceed. We have prescribed mouth care with KBX and have also presc ribed nystatin. If he is unable to swallow the nystatin, then consideration could be given to starti ng him on Diflucan. We will continue to follow along with you. /[id number]/MODL
[2018-08-14] MEDS: SENNOSIDES/DOCUSATE SODIUM TAB PO SCH (23:57)
[2018-08-14] MEDS: NYSTATIN SUSP 500000 UNIT/5 ML UD LIQ PO SCH (23:58)
[2018-08-15] MEDS: LORazepam 0.5 MG TAB PO PRN (00:07)
[2018-08-15] MEDS: NS 1,000 ML IV SCH (00:32)
[2018-08-15] MEDS: MBX SOLN 30 ML BOTTLE PO PRN ×2 (06:03→08:31)
[2018-08-15] MEDS: NYSTATIN SUSP 500000 UNIT/5 ML UD LIQ PO SCH ×2 (06:05→13:01)
[2018-08-15] MEDS: LACOSAMIDE 50 MG TAB PO SCH (08:42)
[2018-08-15] MEDS: SENNOSIDES/DOCUSATE SODIUM TAB PO SCH (08:43)
[2018-08-15 08:49] VITALS: BP 122/67
[2018-08-15] MEDS: ENOXAPARIN 40 MG/0.4 ML SYR SC SCH (09:43)
--- NOTE | 2018-08-15 12:50 | ASMTLACE ---
LACE Length of stay for Answers: 2 days current admission Acuity / Level of Answers: Yes Care: Did the patient have an inpatient admission? Comorbidities - select Answers: Any tumor (including all that apply lymphoma or leukemia) Other Notes: Seizure disorder # of Emergency department Answers: 1-2 visits in the last 6 months Score: 9 Date Signed: 08/15/2018 12:49 PM Electronically Signed By:Libertad Alonso
--- NOTE | 2018-08-15 12:56 | GDS ---
[f rep st] DISCHARGE SUMMARY FINAL DIAGNOSES: 1. Constipation. 2. Head and neck squamous cell cancer, HPV positive. 3. Dysphagia. 4. Pancytopenia due to chemotherapy. 5. Seizure disorder. HOSPITAL COURSE: This is a 58-year-old man who was admitted with abdominal pain likely due to consti pation. This resolved with an an aggressive bowel regimen. CT scan showed no concerning findings. He is actively being treated for squamous cell cancer of the head and neck with radiation as well as chemotherapy. He has almost completed his complete course of radiation, had one more round of chemot herapy scheduled. When I saw him this morning, he was quite paranoid and very ready to leave the [facility]. I do not believe that he met criteria for an M1 hold as he was not a danger to himself, other s or gravely disabled. He also did not meet criteria for medical capacity hold as he had decisional capacity when I saw him. Initial plan was to give him chemotherapy tomorrow, however, given these ex tenuating circumstances, I think it is more appropriate to discharge him. I have discussed this with Dr. Smith in Radiation Oncology who discussed with Dr. Vela. I have also discussed with Dr. Ngoc Sanches who all agree with this plan. He will follow up with outpatient oncologist next week. He is r equesting that he have his PEG removed although I do not believe that he is eating full meals at this time and it seems early to have this removed. He has appropriate tube feeds already set up for him. He is otherwise discharged in stable condition. I spent more than 30 minutes on the day of discharge coordinating care. /[id number]/MODL
--- NOTE | 2018-08-15 13:02 | PDIAF ---
- Diagnosis Diagnosis: head and neck cancer Code Status: Full Code - Medication Management Discharge Medications: electronically signed and located in the Home Medication List. - Orders Services needed: Home Care, Registered Nurse, Certified Oven Equipment Repairer Home Care Face to Face: I certify that this patient was under my care and that I had the required [id number] encounter meeting the encounter requirements on the discharge day. My findings support the fact that the patient is homebound as defined in Home Care Face to Face Continued: CMS Chapter 7 Medicare Benefits Manual 30.1.1 , The condition of the patient is such that there exists a normal inability to leave home and consequently, leaving home would require a considerable and taxing effort. Tube feedin-4 cans of Nutren 2.0/day (50-66% EER) - Follow Up Care Current Providers and Referrals: Itz Vela MD [Medical Doctor] - Shane Smith MD [Primary Care Provider] - As per Instructions
[2018-08-16] MEDS ORDERED: NS IV SCH ×4 (11:00→14:00)
[2018-08-16] MEDS ORDERED: MAGNESIUM SULFATE IV SCH (11:00)
[2018-08-16] MEDS ORDERED: POTASSIUM CL IV SCH (11:00)
[2018-08-16] MEDS ORDERED: DEXAMETHASONE IV SCH (13:00)
[2018-08-16] MEDS ORDERED: APREPITANT IV SCH (13:00)
[2018-08-16] MEDS ORDERED: PALONOSETRON HCL IV SCH (13:00)
[2018-08-16] MEDS ORDERED: CISPLATIN IV SCH (14:00)
== END 2018-08-15 13:01 | disposition home or self-care (01) | DRG 254 ==
LOC: OBSVTOIN 13:57 → F1N 17:25
PROVIDERS: ADMIT Internal Medicine; ATTEND Internal Medicine
DX: K59.00 Constipation, unspecified (principal); D61.810 Antineoplastic chemotherapy induced pancytopenia; R05 Cough; R13.10 Dysphagia, unspecified; Z85.89 Personal history of malignant neoplasm of other organs and systems; Z92.3 Personal history of irradiation; G40.909 Epilepsy, unspecified, not intractable, without status epilepticus; B97.7 Papillomavirus as the cause of diseases classified elsewhere; F17.210 Nicotine dependence, cigarettes, uncomplicated
CPT/HCPCS: 82435-PO; 82565-PO; 82947-PO; 84132-PO; 84295-PO; 84520-PO; 85014-ER; 96374; J0185; J1100; J1170; J2060; J2405; J2469; J3475; J3480; J9060; Q9967

== ENCOUNTER 2018-11-16 09:18 | Inpatient (IN) | payer MEDICAID ==
--- NOTE | 2018-11-16 09:27 | EDPHY ---
H & P Time Seen by Provider: 11/16/18 09:26 HPI/ROS: CHIEF COMPLAINT: Rectal pain for 2 days HISTORY OF PRESENT ILLNESS: History of head and neck squamous cell carcinoma uses a feeding tube. Presents with pain in his rectal area for the last 2 days , says it is severe. Has associated some bright red rectal bleeding for the last 2 days. No vomiting or fever or trauma to that area. Says symptoms are not better or worse with anything. Of note he also relates a history of syncope once a day for the last month. His last seizure was 2 days ago. REVIEW OF SYSTEMS: Eye: no change in vision ENT: Dry mouth, uses feeding tube Cardiac: No chest pain Pulmonary: no cough or SOB Abdomen: HPI Musculoskeletal: no back pain Skin: no rash Neuro: no headache Constitutional: no fever : no urinary symptoms A comprehensive 10 point review of systems is otherwise negative aside from elements mentioned in the history of present illness. PAST MEDICAL HISTORY: Includes squamous cell head and neck cancer, feeding tube , seizure disorder Social history: Tobacco smoker General Appearance: Alert and conversant, cooperative. Eyes: No scleral icterus. ENT, Mouth: Dry mucous membranes. Respiratory: Normal respiratory effort, breath sounds equal, lungs are clear to auscultation. Cardiovascular: Regular rate and rhythm. Gastrointestinal: Abdomen is soft and non tender. Rectal exam shows Skin tag with protruding external hemorrhoid which is not bleeding and not thrombosed. Unable to perform rectal exam because of pain. Does not have perirectal induration or redness. No melena visible, unable to get stool sample. Neurological: Alert, face symmetric, normal motor and sensory in extremities. Skin: Warm and dry, no rashes. Musculoskeletal: No peripheral edema. Psychiatric: Mildly agitated, anxious. Emergency Department course/MDM: Dilaudid 1 mg IV for pain, IV fluids for clinically looks dehydrated, CT pelvis after creatinine resulted. EKG for syncope. 1024: Creatinine normal, 1 mg IV Ativan for anxiety, CT pelvis ordered. 1232: Ramiro for Dr. Meza. Admission for symptom control and further evaluation of the inflammatory perirectal area seen on CT. Warned patient could have many possibilities including but not limited to inflammatory or infectious or cancer. Smoking Status: Heavy smoker Constitutional: Initial Vital Signs Temperature (C) 36.6 C 11/16/18 09:23 Heart Rate 100 11/16/18 09:23 Respiratory Rate 20 11/16/18 09:23 Blood Pressure 118/94 H 11/16/18 09:23 O2 Sat (%) 97 11/16/18 09:23 O2 Delivery Mode Nasal Cannula O2 (L/minute) 2 Allergies/Adverse Reactions: No Known Allergies Allergy (Verified 11/16/18 09:23) Home Medications: Medication Instructions Recorded Lacosamide [Vimpat] 150 mg PO BID #0 03/25/18 Medical Decision Making - Diagnostics EKG Interpretation: 12-lead EKG interpreted by me; official reading is in computer system. My interpretation is normal sinus rhythm rate 77 Imaging Results: Imaging Impressions Pelvis CT 11/16/18 10:24 Impression: 1. Probable mild infectious/inflammatory changes in the posterior perirectal region. 2. However, uptake noted in the right side of the rectum on recent PET scan, which may represent neoplasm or infectious/inflammatory process. Recommend follow-up GI consult and endoscopy versus surgical consult for further evaluation. Findings and recommendations discussed with emergency department physician, Tommie Mireles MD at 1209 hours on November 16, 2018. Final report concurs with initial preliminary interpretation. Imaging: Discussed imaging studies w/ order desk caller Radiologist - Data Points Laboratory Results: Laboratory Results 11/16/18 09:45 11/16/18 09:45 11/16/18 11/16/18 09:45 09:45 WBC 8.73 10^3/uL 10^3/uL (3.80-9.50) RBC 3.36 10^6/uL L 10^6/uL (4.40-6.38) Hgb 12.5 g/dL L g/dL (13.7-17.5) Hct 36.4 % L % (40.0-51.0) MCV 108.3 fL H fL (81.5-99.8) MCH 37.2 pg H pg (27.9-34.1) MCHC 34.3 g/dL g/dL (32.4-36.7) RDW 12.2 % % (11.5-15.2) Plt Count 208 10^3/uL 10^3/uL (150-400) MPV 10.4 fL fL (8.7-11.7) Neut % (Auto) 75.3 % H % (39.3-74.2) Lymph % (Auto) 15.2 % % (15.0-45.0) Schuyler % (Auto) 7.3 % % (4.5-13.0) Eos % (Auto) 1.4 % % (0.6-7.6) Baso % (Auto) 0.3 % % (0.3-1.7) Nucleat RBC Rel Count 0.0 % % (0.0-0.2) Absolute Neuts (auto) 6.57 10^3/uL H 10^3/uL (1.70-6.50) Absolute Lymphs (auto) 1.33 10^3/uL 10^3/uL (1.00-3.00) Absolute Monos (auto) 0.64 10^3/uL 10^3/uL (0.30-0.80) Absolute Eos (auto) 0.12 10^3/uL 10^3/uL (0.03-0.40) Absolute Basos (auto) 0.03 10^3/uL 10^3/uL (0.02-0.10) Absolute Nucleated RBC 0.00 10^3/uL 10^3/uL (0-0.01) Immature Gran % 0.5 % % (0.0-1.1) Immature Gran # 0.04 10^3/uL 10^3/uL (0.00-0.10) Sodium 140 mEq/L mEq/L (135-145) Potassium 3.7 mEq/L mEq/L (3.5-5.2) Chloride 105 mEq/L mEq/L (97-110) Carbon Dioxide 23 mEq/l mEq/l (22-31) Anion Gap 12 mEq/L mEq/L (6-14) BUN 22 mg/dL mg/dL (7-23) Creatinine 1.0 mg/dL mg/dL (0.7-1.3) Estimated GFR > 60 Glucose 127 mg/dL H mg/dL (70-100) Calcium 10.0 mg/dL mg/dL (8.5-10.4) Medications Given: Discontinued Medications Hydromorphone HCl (Dilaudid) 1 mg IVP EDNOW ONE Stop: 11/16/18 09:38 Last Admin: 11/16/18 09:49 Dose: 1 mg Hydromorphone HCl (Dilaudid) 0.5 mg IVP EDNOW ONE Stop: 11/16/18 10:38 Last Admin: 11/16/18 10:41 Dose: 0.5 mg Hydromorphone HCl (Dilaudid) 0.5 mg IVP EDNOW ONE Stop: 11/16/18 11:11 Last Admin: 11/16/18 11:21 Dose: 0.5 mg Sodium Chloride (Ns) 1,000 mls @ 0 mls/hr IV EDNOW ONE; Wide Open PRN Reason: Protocol Stop: 11/16/18 09:38 Last Admin: 11/16/18 09:52 Dose: 1,000 mls Lorazepam (Ativan Injection) 1 mg IVP EDNOW ONE Stop: 11/16/18 10:22 Last Admin: 11/16/18 10:24 Dose: 1 mg Ondansetron HCl (Zofran) 4 mg IVP EDNOW ONE Stop: 11/16/18 09:38 Last Admin: 11/16/18 09:51 Dose: 4 mg Departure - Departure Disposition: [facility] Acute Clinical Impression: Rectal pain Condition: Fair
[2018-11-16] MEDS ORDERED: NS 1,000 ML IV ONE (09:37)
[2018-11-16] MEDS ORDERED: ONDANSETRON 4 MG/2 ML VIAL IVP ONE (09:37)
[2018-11-16] MEDS ORDERED: HYDROmorphONE/DILAUDID 2 MG/ML INJ IVP ONE ×3 (09:37→11:10)
[2018-11-16 10:00] LABS: PLATELET COUNT 208 10^3/uL (150-400)
[2018-11-16] MEDS ORDERED: LORazepam 2 MG/ML INJ IVP ONE (10:21)
[2018-11-16] MEDS ORDERED: IOPAMIDOL (ISOVUE-300) 100 ML BTL ONE (10:40)
--- NOTE | 2018-11-16 10:45 | CPEKG ---
Test Reason : OPEN Blood Pressure : / mmHG Vent. Rate : 077 BPM Atrial Rate : 077 BPM P-R Int : 193 ms QRS Dur : 083 ms QT Int : 387 ms P-R-T Axes : 081 068 060 degrees QTc Int : 438 ms Sinus rhythm Confirmed by Dania Woods ([id number]) on 11/16/2018 10:45:20 AM Referred By: DANIA WOODS Confirmed By:Dania Woods
[2018-11-16] MEDS ORDERED: ACETAMINOPHEN 325 MG TAB PO PRN (14:04)
[2018-11-16] MEDS: HYDROmorphONE/DILAUDID 1 MG/ML INJ IVP PRN ×2 (14:20→19:20)
[2018-11-16] MEDS ORDERED: MAGNESIUM HYDROXIDE 30 ML UDCUP PO PRN (14:40)
[2018-11-16] MEDS ORDERED: POLYETHYLENE GLYCOL 3350 17 GM PKT PO PRN (14:40)
[2018-11-16] MEDS ORDERED: BISACODYL 10 MG SUPP PR PRN (14:40)
--- NOTE | 2018-11-16 14:59 | GHP ---
[f rep st] HISTORY AND PHYSICAL DATE OF ADMISSION: 11/16/2018 CHIEF COMPLAINT: Rectal pain. HISTORY OF PRESENT ILLNESS: The patient is a 58-year-old man with a history significant for squamous cell carcinoma of the head and neck. He was diagnosed last summer after a seizure led to a workup w hich revealed some suspicious lymph nodes and biopsy showed squamous cell carcinoma. He started chem o and radiation in July of this year after a laparoscopic G-tube was placed. He completed chemo a nd radiation approximately 2 weeks ago. He has had ongoing constipation throughout his course and 2 to 4 days ago started developing rectal pain. The pain has worsened significantly over the past day to a point where he came into the emergency room for further evaluation and treatment. He denies fev ers, but has had some chills and sweats. He did see a little bit of blood externally on the bowel mo vements. No gross melena or hematochezia. His last bowel movement was yesterday. He is receiving a ll of his nutrition from enteral feedings at this time. He denies any trauma to his rectal area prio r to his pain developing. He has not had any other headaches, vision, hearing, speech issues. No ch est pain, shortness of breath, or other abdominal issues. His urination is slow. No joint pains or edema. He does admit to some orthostatic type symptoms and unclear if he has actually fainted or not . The patient is a relatively poor historian at this time because of pain issues. REVIEW OF SYSTEMS: A 10-point review of systems was done with pertinent positives and negatives pres ent in HPI. PAST MEDICAL HISTORY: 1. Head and neck squamous cell carcinoma, status post chemo and radiation. Currently followed by Dr Martínez Vela. 2. Seizure disorder, currently on Vimpat. SOCIAL HISTORY: He currently lives alone up in [place]. He is not currently working. He smokes 2 -3 cigarettes a day. He is on enteral feedings currently. FAMILY HISTORY: Reviewed, noncontributory. ALLERGIES: No known drug allergies. MEDICATIONS: Please see med reconciliation form. PHYSICAL EXAMINATION: VITAL SIGNS: He is afebrile. Heart rate 65, blood pressure 138/86, respirati ons 18. He is 100% on 2 L. GENERAL: He is a thin, almost cachectic, 58-year-old man in moderate to severe distress due to rectal pain. HEENT: Pupils are equal. Voice is fluent. Face is symmetric. NECK: Supple without adenopathy. HEART: Regular. No murmur, gallop, or rub. LUNGS: Clear bila terally without wheeze or rhonchi. ABDOMEN: Soft. He does have a G-tube in place. No masses noted . EXTREMITIES: No clubbing, cyanosis, or edema. SKIN: No rash. MUSCULOSKELETAL: No joint effusi ons or deformities. NEUROLOGIC: His speech is fluent. He does move all 4 extremities. PSYCHIATRIC : Poor eye contact, quite agitated due to pain, but appropriate. RECTAL: Multiple skin tags and ex ternal hemorrhoids noted, however, no obvious fissure. Patient would not allow me to do an exam inte rnally due to pain. DIAGNOSTICS: Pelvic CT, probable mild infectious inflammatory changes in the posterior perirectal re gion. This did light up on a recent PET scan, of note. ASSESSMENT: A 58-year-old with history of squamous cell carcinoma of head and neck, status post chem o and radiation, presents with severe rectal pain. External exam is fairly unremarkable, however, pe lvic CT does show some mild infectious inflammatory changes, but no obvious perirectal abscess noted. Unclear etiology at this point. He could certainly have had some sort of infectious process, canno t rule out neoplasm. I am unable to adequately examine this area with a proctoscope or digital exam, given the patient's severe pain. PLAN: 1. Admit to the hospital. Provide pain control with narcotic pain medications and add bowel protoco l. I did discuss the case with General Surgery, who will see the patient for evaluation to see if he can provide any further evaluation under anesthesia to provide information on as to the source of th is abnormality on his pelvic CT versus deferring to GI. 2. Seizure disorder. Will continue the patient's Vimpat while he is here. 3. Nutrition: The patient is on enteral feeds at this time. Will resume his usual home regimen and have Dietary see him as well. /[id number]/MODL
--- NOTE | 2018-11-16 16:03 | ASMTCMCOM ---
CM Note CM Note Notes: Pt admitted for abnormal pelvis CT scan and pain control r/t severe rectal pain that has been getting worse over the past 2-4 days. Pt's PMH includes squamous cell carcinoma of the head and neck, and a seizure disorder. Pt receives all of his nutrition through a G-tube at this time. Pt had been receiving chemo and radiation since July but completed treatments ~2 wks ago. Pt is followed by Dr Itz Vela. Per chart review, it also appears pt is followed/familiar to Oncology Nurse Navigator, Deborah La ([phone]). Pt had been admitted in 08/12/18 for dysphagia, constipation and FTT; pt was d/c'd w/[facility] to provide enteral feeding supplies. Pt lives alone in [place]. Pt has a friend Adrian Lopez listed as NOK/Emergency Contact. Exact DC needs TBD. OT/FREIGHT ROUTER evals ordered. CM to follow. Date Signed: 11/16/2018 04:02 PM Electronically Signed By:Anjali Martinez RN
[2018-11-16] MEDS: oxyCODONE IR 5 MG TAB PO PRN ×2 (16:49→22:42)
[2018-11-16] MEDS: ONDANSETRON 4 MG/2 ML VIAL IVP PRN (17:09)
--- NOTE | 2018-11-16 20:08 | HOSPPROG ---
Hospitalist Progress Note Assessment/Plan: The patient's nurse contacted me stating that patient was starting a Pilates Bro catheter secondary to discomfort. Patient was noted to have a large amount of urine retention prior to his placement. I recommended that we try a dose Flomax and then remove the Bro catheter with a bladder scan in the morning for reassessment. Objective: Vital Signs Temp Pulse Resp BP Pulse Ox 36.4 C 70 18 147/88 H 100 11/16/18 15:46 11/16/18 15:46 11/16/18 15:46 11/16/18 15:46 11/16/18 15:46 11/15/18 11/16/18 11/17/18 05:59 05:59 05:59 Intake Total 2000 Output Total 1550 Balance 450 ICD10 Worksheet Patient Problems: Problems Problem Status Onset Rectal pain Acute Alcohol intoxication Acute Dehydration Acute Forehead laceration Acute
[2018-11-16] MEDS: ONDANSETRON DISINTEGRATING 4 MG TAB PO PRN (20:22)
[2018-11-16] MEDS: LACTULOSE 20 GM/30 ML UDCUP PO PRN (20:23)
[2018-11-16] MEDS: LACOSAMIDE 50 MG TAB PO SCH (20:23)
[2018-11-16] MEDS: SENNOSIDES/DOCUSATE SODIUM TAB PO SCH (20:23)
[2018-11-16] MEDS: TAMSULOSIN HCL 0.4 MG CAP PO SCH (20:35)
--- NOTE | 2018-11-16 21:06 | GCON ---
[f rep st] CONSULTATION I was asked to see the patient by Dr. Urmila Meza in regard to rectal pain. This 58-year-old male h ad recently completed chemoradiation for head and neck cancer. He is being fed through a gastrostomy tube and over the last day, he developed increasing rectal pain. He states that even coughing cause s severe pain in his rectum. An attempt by the emergency room physician to do a rectal exam was unsu ccessful because of the patient's discomfort and fear. Only mild external hemorrhoid disease was inez ntified. The patient denies any rectal bleeding. PHYSICAL EXAM: Gastrostomy tube in place. Abdomen is fairly soft and benign, but there is a fullnes s in the pelvis consistent with the CT appearance of a very enlarged bladder. I reviewed his CAT scan with the radiologist and the ill-defined thickening around the rectum is very difficult to put in perspective. It is not marked. There was no evidence of an abscess, no free ai r, and difficult to state how severe this issue is. I asked for a Bro catheter to be placed, which yielded 1500 cc, after which the patient states that most of his lower abdominal pain and rectal alison n had vanished. He no longer has pain when coughing. ASSESSMENT: Patient presenting with pelvic pain radiating in his rectum, much improved after Bro c atheter decompression of 1500 cc of urinary retention. We will see how he is doing tomorrow. If he were to manifest the same degree of pain he had today, an exam under anesthesia might be appropriate, but as mentioned above, there was certainly no CT documented evidence of abscess or surgical issues in the pelvis at this time. /[id number]/MODL
[2018-11-17] MEDS: ONDANSETRON 4 MG/2 ML VIAL IVP PRN ×3 (00:06→14:05)
[2018-11-17] MEDS: ONDANSETRON DISINTEGRATING 4 MG TAB PO PRN (02:30)
[2018-11-17] MEDS: HYDROmorphONE/DILAUDID 1 MG/ML INJ IVP PRN (02:35)
[2018-11-17] MEDS ORDERED: NALOXONE HCL 0.4 MG/ML INJ IVP PRN (02:51)
--- NOTE | 2018-11-17 02:54 | HOSPPROG ---
Hospitalist Progress Note Assessment/Plan: XC: Notified of ongoing, severe pain despite aggressive measures including multiple laxatives. I will place patient on morphine TRADEMARK PARALEGAL for pain control. Objective: Vital Signs Temp Pulse Resp BP Pulse Ox 36.9 C 91 18 113/76 98 11/16/18 23:44 11/16/18 23:44 11/16/18 23:44 11/16/18 23:44 11/16/18 23:44 11/15/18 11/16/18 11/17/18 05:59 05:59 05:59 Intake Total 1999 Output Total 1550 Balance 450 ICD10 Worksheet Patient Problems: Problems Problem Status Onset Alcohol intoxication Acute Forehead laceration Acute Dehydration Acute Rectal pain Acute
[2018-11-17] MEDS: morphINE PCA 30 MG/30 ML PCA IV PRN ×3 (03:20→20:01)
[2018-11-17 04:46] LABS: PLATELET COUNT 196 10^3/uL (150-400)
--- NOTE | 2018-11-17 08:47 | HOSPPROG ---
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 Imaging did note some inflammation in his posterior rectal wall but no abscess. Today his pain is excruciating again he is also quite constipated. Yesterday after placement of a Bourgeois his pain improved briefly but then escalated again overnight requiring a morphine VIDEO SURVEILLANCE TECHNICIAN. # rectal pain, unclear etiology he does have some evidence of inflammation/ infection on his pelvic CT but no abscess. If his pain continues to be unresponsive and persistence he may need a exam under anesthesia by surgery. * Trial lidocaine ointment/cream * Continue bowel protocol * Currently needing IV narcotics for pain control # nausea, patient has ongoing nausea but a benign exam. Will check an abdominal flat plate # urinary retention, acute patient noted to have 1500 cc yesterday and after Bourgeois placed he was unable to tolerate the Bourgeois so it was again removed in the middle of the night and Flomax was added. Unfortunately he continues to have elevated PVR is today if it persists greater than 500 mL will replace the Bourgeois. # nutrition: Patient currently on tube feeds. He states that since being on the tube feeds has had severe constipation requiring enemas and self disimpaction. Will have dietary come see him and review tube feed options for him. # constipation, chronic issue unclear if related to his tube feeds. He does try to drink a quart of water daily through his tube * Check abdominal flat plate * Enemas and bowel protocol * Could consider barium enema although patient may not tolerated due to his pain # history of squamous cell cancer of his head neck status post radiation and chemotherapy. # DVT prophylaxis: On Lovenox Subjective: Patient continues to have severe pain now complicated by urinary retention and constipation Objective: Vital Signs Temp Pulse Resp BP Pulse Ox 36.7 C 64 18 120/72 100 11/17/18 08:00 11/17/18 08:00 11/17/18 08:00 11/17/18 08:00 11/17/18 08:00 Laboratory Results 11/17/18 04:18 11/17/18 04:18 11/16/18 11/17/18 11/18/18 05:59 05:59 05:59 Intake Total 2300 Output Total 1850 100 Balance 450 -100 - Physical Exam Constitutional: chronically ill appearing, uncomfortable, cachectic Eyes: PERRL Ears, Nose, Mouth, Throat: hearing normal Cardiovascular: regular rate and rhythym Respiratory: no respiratory distress Gastrointestinal: soft, non-tender abdomen, other (Gtube) Genitourinary: no bladder tenderness, No bourgeois in urethra Skin: normal color Neurologic: AAOx3 Psychiatric: anxious ICD10 Worksheet Patient Problems: Problems Problem Status Onset Alcohol intoxication Acute Forehead laceration Acute Dehydration Acute Rectal pain Acute
[2018-11-17] MEDS ORDERED: LIDOCAINE 2% JELLY 6 ML TOPICAL SYR TP PRN (08:49)
[2018-11-17] MEDS: TAMSULOSIN HCL 0.4 MG CAP PO SCH (10:55)
[2018-11-17] MEDS: LACOSAMIDE 50 MG TAB PO SCH ×2 (10:55→20:37)
[2018-11-17] MEDS: SENNOSIDES/DOCUSATE SODIUM TAB PO SCH ×2 (10:55→20:37)
[2018-11-17] MEDS: ENOXAPARIN 40 MG/0.4 ML SYR SC SCH (10:55)
--- NOTE | 2018-11-17 13:22 | ASMTCMCOM ---
CM Note CM Note Notes: CM met with pt in his room. Pt states he is "ready to " and is "okay with it" but wishes it would be over quickly. CM spoke with him about having Spiritual Care meet with him, but he declined. States he just wants to not hurt so much. CM put in a Palliative Care order for him. Pt has not yet been seen by OT or PLANT HR MANAGER. (PLANT HR MANAGER made attempt but pt was unavailable.) CM will continue to follow. LIZZY D/C plan: TBD Date Signed: 11/17/2018 01:21 PM Electronically Signed By:Kimberli Whitney
[2018-11-17] MEDS: LACTULOSE 20 GM/30 ML UDCUP PO PRN (13:29)
[2018-11-17] MEDS: LIDOCAINE 2% JELLY 6 ML TOPICAL SYR TP PRN ×3 (15:39→23:47)
--- NOTE | 2018-11-17 17:00 | PDMN ---
Medical Necessity Medical necessity: MCG PGPM Pain Management: 58 yo w/ severe rectal pain in setting of known squamous cell carcinoma of head/neck. Completed chemo/ radiation 2 wks ago. 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 Pain continues to be severe now complicated by urinary retention and constipation. Change to IP status 11/17/18@1634 per MD order.
[2018-11-17] MEDS: oxyCODONE IR 5 MG TAB PO PRN (18:54)
[2018-11-17] MEDS: KETOROLAC 30 MG/1 ML SDV IVP PRN (19:43)
--- NOTE | 2018-11-17 22:01 | HOSPPROG ---
Hospitalist Progress Note Assessment/Plan: Received notification pt had a BM today which reignited his rectal pain. I was at beside w/the pt and oncoming nightshift RN. He was thrashing about in his bed naked repeatedly saying it feels as though his rectum is coming out. Exterior of his rectum is erythematous and firm. Digital exam was unremarkable , no impacted stool nor did I feel hemorrhoids. It was quite painful for the pt. Imaging does not indicate infections or abscesses. Per daytime RN, his pain was well managed w/Morphine MEDICATION AID and Lidocaine Jelly. It seems his pain was exacerbated w/his bowel movement. I gave him Toradol IVP and recommended either hot or cold pack (whichever feels comfortable and helpful) to his rectum area and left a message for Dr. Sanches indicating to him he will most likely need anesthesia to figure out why the pt continues to have this rectal pain. Waiting for a call back. Objective: Vital Signs Temp Pulse Resp BP Pulse Ox 37.6 C 79 16 125/72 H 97 11/17/18 18:00 11/17/18 20:00 11/17/18 20:00 11/17/18 20:00 11/17/18 20:00 11/16/18 11/17/18 11/18/18 05:59 05:59 05:59 Intake Total 979 Output Total 250 Balance 729 ICD10 Worksheet Patient Problems: Problems Problem Status Onset Rectal pain Acute Alcohol intoxication Acute Dehydration Acute Forehead laceration Acute
[2018-11-18] MEDS: morphINE PCA 30 MG/30 ML PCA IV PRN ×2 (04:05→14:58)
[2018-11-18] MEDS: LIDOCAINE 2% JELLY 6 ML TOPICAL SYR TP PRN ×3 (04:05→14:44)
[2018-11-18 05:19] LABS: PLATELET COUNT 176 10^3/uL (150-400)
[2018-11-18] MEDS: KETOROLAC 30 MG/1 ML SDV IVP PRN ×2 (08:07→17:07)
[2018-11-18] MEDS: LACOSAMIDE 50 MG TAB PO SCH ×2 (08:08→21:00)
[2018-11-18] MEDS: TAMSULOSIN HCL 0.4 MG CAP PO SCH (08:08)
[2018-11-18] MEDS: ENOXAPARIN 40 MG/0.4 ML SYR SC SCH (08:08)
[2018-11-18] MEDS: SENNOSIDES/DOCUSATE SODIUM TAB PO SCH ×2 (08:08→21:00)
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
--- NOTE | 2018-11-18 11:23 | HOSPPROG ---
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 Imaging did note some inflammation in his posterior rectal wall but no abscess. Today his pain is excruciating again he is also quite constipated. He is using quite a bit of Morphine for control of his rectal pain and is demanding of ongoing enemas although I am concerned because I am not sure what exactly is going on with his rectum since I was unable to examine it due to pain. # rectal pain, unclear etiology he does have some evidence of inflammation/ infection on his pelvic CT but no abscess. If his pain continues to be unresponsive and persistence he may need a exam under anesthesia by surgery. * Continue current lidocaine ointment, try to decrease Morphine use since it is escalating. * Reconsult general surgery for further evaluation. May need further imaging or evaluation under anesthesia # nausea, patient has ongoing nausea but a benign exam. Abdominal flat plate normal # urinary retention, acute patient noted to have 1500 cc yesterday and after Bourgeois placed he was unable to tolerate the Bourgeois so it was again removed in the middle of the night and Flomax was added. * Bourgeois added due to urinary retention # nutrition: Patient currently on tube feeds. He states that since being on the tube feeds has had severe constipation requiring enemas and self disimpaction. Will have dietary come see him and review tube feed options for him. # constipation, chronic issue unclear if related to his tube feeds. He does try to drink a quart of water daily through his tube * Check abdominal flat plate * Minimize enemas today until exam done by surgery. * Could consider barium enema although patient may not tolerated due to his pain # history of squamous cell cancer of his head neck status post radiation and chemotherapy. # DVT prophylaxis: On Lovenox Subjective: pt very agitated and upset about pain, demanding more enemas since he feels constipation is the issue but no significant output. Objective: Vital Signs Temp Pulse Resp BP Pulse Ox 37.4 C 105 H 16 153/93 H 111 H 11/18/18 07:19 11/18/18 07:19 11/18/18 07:19 11/18/18 07:19 11/18/18 07:19 Laboratory Results 11/18/18 04:41 11/18/18 04:41 05/12/3111/18/18 11/19/18 05:59 05:59 05:59 Intake Total 1279 1069.3 Output Total 950 Balance 329 1069.3 - Physical Exam Constitutional: uncomfortable, cachectic Eyes: PERRL Ears, Nose, Mouth, Throat: moist mucous membranes Cardiovascular: regular rate and rhythym Respiratory: no respiratory distress Gastrointestinal: soft, non-tender abdomen Genitourinary: no bladder fullness, bourgeois in urethra Skin: normal color Psychiatric: agitated ICD10 Worksheet Patient Problems: Problems Problem Status Onset Alcohol intoxication Acute Forehead laceration Acute Dehydration Acute Rectal pain Acute
--- NOTE | 2018-11-18 11:27 | PDCONSULT ---
Home Care Assistant Note: 11/18/2018 Assessment: Patient with multiple issues has an increasing rectal/perirectal discomfort with a left perirectal swelling. WBC and temp stable but % neutrophiles increased. He has chronic constipation and does manually disimpact. PET and last CT abnormal I suspect that he has a perirectal abscess secondary to passage of hard stool/ injury from manual dis-impaction I will plan a CT to r/o supralevator extension of an abscess and help plan surgical approach. I will start IV antibiotics. Can not r/o a neoplastic process but that seems less likely. Expect that surgical intervention will be necessary today.
[2018-11-18] MEDS: ERTAPENEM 1 GM in NS 100 ML IV SCH (12:28)
[2018-11-18] MEDS ORDERED: IOPAMIDOL (ISOVUE-300) 100 ML BTL ONE (13:41)
[2018-11-18] MEDS ORDERED: BACITRACIN 50,000 UNITS/10 ML SYR IRR ONE (20:34)
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
[2018-11-18] MEDS ORDERED: MIDAZOLAM 2 MG/2 ML VIAL ONE (21:20)
[2018-11-18] MEDS ORDERED: fentaNYL 100 MCG/2 ML INJ ONE ×3 (21:22→23:08)
[2018-11-18] MEDS ORDERED: PROPOFOL 200 MG/20 ML VIAL ONE (21:22)
[2018-11-18] MEDS ORDERED: DEXAMETHASONE 4 MG/ML VIAL ONE (21:23)
[2018-11-18] MEDS ORDERED: ROCURONIUM 50 MG/5 ML VIAL ONE (21:23)
[2018-11-18] MEDS ORDERED: ePHEDrine SULFATE 25 MG/5 ML SYR ONE (21:51)
[2018-11-18] MEDS ORDERED: PHENYLEPHRINE HCL 100 MCG/ML SYR ONE (21:53)
[2018-11-18] MEDS ORDERED: ONDANSETRON 4 MG/2 ML VIAL ONE ×2 (22:08→23:12)
[2018-11-18] MEDS ORDERED: HYDROmorphONE/DILAUDID 1 MG/ML INJ IVP PRN (22:29)
[2018-11-18] MEDS ORDERED: NALOXONE HCL 0.4 MG/ML INJ IVP PRN (22:29)
--- NOTE | 2018-11-18 22:37 | POSTOPPROG ---
Post Op Note Date of Operation: 11/18/18 Surgeon: Bart Kraft Anesthesia: GET(General Endotracheal) Pre-op Diagnosis: left perirectal abscess Post-op Diagnosis: left perirectal abscess with posterior fistula Indication: left perirectal abscess Procedure: I&D perirectal abscess with fistulectomy Findings: left perirectal abscess with posterior fistula Inf/Abcess present in the surg proc area at time of surgery?: Yes Depth: Deep Incisional (Fascial) EBL: Minimal Total fluids administered: 650 Complications: none Bowel Protocol: N/A Clean Closure Performed: N/A Drains: Other (Rectal whistle pack and iodoform packing) Specimen(s): Perirectal inflamed/indurated tissue
[2018-11-18] MEDS: fentaNYL 100 MCG/2 ML INJ IVP PRN ×2 (23:09→23:14)
[2018-11-18] MEDS ORDERED: PROMETHAZINE HCL 25 MG/ML INJ ONE (23:15)
--- NOTE | 2018-11-18 23:18 | GOP ---
[f rep st] OPERATIVE REPORT DATE OF OPERATION: 11/18/2018 SURGEON: Bart Kraft MD PREOPERATIVE DIAGNOSIS: Left perirectal abscess. POSTOPERATIVE DIAGNOSIS: Left perirectal abscess with posterior rectal fistula. PROCEDURE PERFORMED: Incision and drainage of perirectal abscess with fistulectomy. FINDINGS: Left perirectal abscess with posterior fistula. INDICATIONS: Left perirectal abscess. ABSCESS PRESENT: Yes. DEPTH: Fascial. FLUIDS REPLACED: 650 cc. COMPLICATIONS: None. DRAINS: A rectal whistle pack with packing of the I and D region with an Iodoform gauze. ESTIMATED BLOOD LOSS: Minimal. DESCRIPTION OF PROCEDURE: The patient was placed the operating table in the supine position. After new IV had been started and general endotracheal anesthetic administered, he was placed in the lithotomy position with "candy- cane" support. The perineum was carefully clipped, prepped, and draped. A surgical time-out was carried out and agreed to by all members of the operative team. The indurated and swollen left perirectal area was carefully marked for a circular incision. A rectal speculum was passed and purulent whitish material was seen draining posteriorly in the rectum. An I and D was made using a Bovie cautery at 30 watt seconds. A core of indurated tissue was removed. The abscess and fistulous tract were identified. A probe was carefully passed through the fistulous tract and dissection was carried down to it in a posterolateral direction using electrocautery. Hemostasis was achieved all sites with electrocautery. A search was carried out. No other abscessed tissue was identified. A rectal whistle pack was placed using a 26-English Bro, which has been carefully cut to about a 6 inch length. A rescue suture of 2-0 silk was placed on the external end to aid in extraction. Gel-Foam was carefully wrapped around it. It was placed into the rectum itself. The perirectal abscess and fistulous track area were carefully packed with iodoform gauze. The dressings were removed. The perineum was carefully cleansed. 4x4s were carefully packed on either side of the rectum and over the top of the rectal whistle pack. An ABD dressing was also placed. Tape was used to secure it. A mesh underwear was carefully placed to help hold the dressing in position. He was transferred to recovery in stable and satisfactory condition. . /[id number]/MODL MTDD
[2018-11-18] MEDS ORDERED: HYDROmorphONE/DILAUDID 1 MG/ML INJ ONE (23:21)
[2018-11-18] MEDS ORDERED: PROMETHAZINE HCL 25 MG/ML INJ IV ONE (23:30)
--- NOTE | 2018-11-18 23:54 | POSTANESTH ---
Post Anesthetic Evaluation Cardiovascular Status: Normal, Stable Respiratory Status: Similar to Pre-op Cond. Level of Consciousness/Mental Status: Can Participate in Eval Pain Control: Adequate, Prn Tx Ordered Nausea/Vomiting Control: Adequate, Prn Tx Ordered Complications Possibly Related to Anesthesia: None Noted
[2018-11-19] MEDS ORDERED: ACETAMINOPHEN 500 MG TAB ONE (00:11)
[2018-11-19] MEDS: POTASSIUM Cl (KCl) 100 ML IV SCH ×2 (00:11→01:52)
[2018-11-19] MEDS ORDERED: KETOROLAC 30 MG/1 ML SDV ONE (00:11)
[2018-11-19] MEDS: ACETAMINOPHEN 500 MG TAB PO SCH ×4 (00:14→23:08)
[2018-11-19] MEDS: KETOROLAC 30 MG/1 ML SDV IVP SCH ×2 (00:15→05:33)
[2018-11-19] MEDS: NS 1,000 ML IV SCH ×3 (00:35→23:35)
[2018-11-19] MEDS: morphINE PCA 30 MG/30 ML PCA IV PRN (02:48)
[2018-11-19 04:36] LABS: PLATELET COUNT 144 10^3/uL (150-400)
[2018-11-19] MEDS: TAMSULOSIN HCL 0.4 MG CAP PO SCH (08:30)
[2018-11-19] MEDS: ENOXAPARIN 40 MG/0.4 ML SYR SC SCH (08:30)
[2018-11-19] MEDS: SENNOSIDES/DOCUSATE SODIUM TAB PO SCH ×2 (08:30→21:11)
[2018-11-19] MEDS: LACOSAMIDE 50 MG TAB PO SCH ×2 (08:30→21:11)
--- NOTE | 2018-11-19 08:48 | HOSPPROG ---
Hospitalist Progress Note Assessment/Plan: #Left perirectal abscess with posterior fistula -POD #1 I&D -pain controlled today -Ertapenem #Nausea: negative AXR # Urinary retention, acute: Flomax, bourgeois replaced #Constipation, chronic issue unclear if related to his tube feeds. #h/o SCC head/neck: s/p radiation and chemotherapy. In remission -G-tube removed #Protein caloric malnutrition -doesn't want G-tube; removed today -dietary consult #DVT ppx: Subjective: denies rectal pain. Wants G-tube out Objective: Vital Signs Temp Pulse Resp BP Pulse Ox 37.3 C 60 18 95/81 H 92 11/19/18 08:00 11/19/18 08:00 11/19/18 08:00 11/19/18 08:00 11/19/18 08:00 Laboratory Results 11/19/18 04:22 11/19/18 04:22 11/18/18 11/19/18 11/20/18 05:59 05:59 05:59 Intake Total 1279 3610.1 Output Total 950 810 Balance 329 2800.1 - Time Spent With Patient Time Spent with Patient: greater than 35 minutes Time Spent with Patient: Greater than 35 minutes spent on this patients care, greater than 50% of time spent counseling, educating, and coordinating care regarding the above mentioned plan. - Physical Exam Constitutional: cachectic Eyes: PERRL Ears, Nose, Mouth, Throat: moist mucous membranes Cardiovascular: regular rate and rhythym Respiratory: no respiratory distress Gastrointestinal: other (G-tube in place) Genitourinary: no bladder fullness, other (rectal incision dressed) Skin: warm ICD10 Worksheet Patient Problems: Problems Problem Status Onset Rectal pain Acute Alcohol intoxication Acute Dehydration Acute Forehead laceration Acute
[2018-11-19] MEDS: ERTAPENEM 1 GM in NS 100 ML IV SCH (09:15)
--- NOTE | 2018-11-19 09:51 | SOAPPROG ---
SOAP Progress Note Assessment/Plan: 11/19/18 09:48 POD#1 Assessment: Packing removed. Feels much better! Plan: Continue antibiotics Q8 perineal cleansing restart feeds Subjective: I feel much better!!! Objective: Vital Signs Temp Pulse Resp BP Pulse Ox 36.8 C 60 18 95/81 H 92 11/19/18 08:53 11/19/18 08:00 11/19/18 08:00 11/19/18 08:00 11/19/18 08:00 Laboratory Results 11/19/18 04:22 11/19/18 04:22 11/18/18 11/19/18 11/20/18 05:59 05:59 05:59 Intake Total 1279 3610.1 Output Total 950 810 Balance 329 2800.1 - Time Spent With Patient Time Spent With Patient: 25 - Pending Discharge Pending Discharge Within 24 Hours: No Physical Exam - Physical Exam General Appearance: WD/WN, alert, no apparent distress Rectal: other (rectal pack removed, iodoform removed, minimal bleeding noted on dressings) ICD10 Worksheet Patient Problems: Problems Problem Status Onset Rectal pain Acute Alcohol intoxication Acute Dehydration Acute Forehead laceration Acute
--- NOTE | 2018-11-19 12:55 | SOAPPROG ---
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 * F/E/N: He feels the tube feeding was contributing to constipation. I recommend he stop and just take PO. Will look into have the g-tube removed. Was placed by surgery. Nutrition seeing. * Left perirectal abscess with posterior fistula: POD #1 I&D; on ertapenem * Seizure disorder: cont. meds; followed by neurology Subjective: Much better after getting I&D of perianal abscess. Able to eat and swallow. Doesn't want to use PEG feeding any more. Objective: Vital Signs Temp Pulse Resp BP Pulse Ox 36.8 C 57 L 18 98/61 L 92 11/19/18 08:53 11/19/18 11:18 11/19/18 11:18 11/19/18 11:18 11/19/18 11:18 Laboratory Results 11/19/18 04:22 11/19/18 04:22 11/18/18 11/19/18 11/20/18 05:59 05:59 05:59 Intake Total 1279 3610.1 Output Total 950 810 Balance 329 2800.1 Physical Exam - Physical Exam General Appearance: no apparent distress Respiratory: lungs clear Cardiac/Chest: regular rate, rhythm Abdomen: normal bowel sounds, non-tender, soft ICD10 Worksheet Patient Problems: Problems Problem Status Onset Rectal pain Acute Alcohol intoxication Acute Dehydration Acute Forehead laceration Acute
[2018-11-19] MEDS: oxyCODONE IR 5 MG TAB PO PRN (21:13)
[2018-11-20] MEDS: oxyCODONE IR 5 MG TAB PO PRN ×2 (02:01→13:56)
[2018-11-20] MEDS: LIDOCAINE 2% JELLY 6 ML TOPICAL SYR TP PRN ×4 (02:08→19:49)
[2018-11-20] MEDS ORDERED: HYDROmorphONE/DILAUDID 1 MG/ML INJ IVP ONE (02:21)
[2018-11-20] MEDS: ACETAMINOPHEN 500 MG TAB PO SCH ×3 (05:54→20:35)
--- NOTE | 2018-11-20 08:45 | SOAPPROG ---
SOAP Progress Note Assessment/Plan: 11/19/18 09:48 POD#1 Assessment: Packing removed. Feels much better! Plan: Continue antibiotics Q8 perineal cleansing restart feeds POD#2 11/20/18 08:41 Assessment: C/o of increased perineal pain last night. Has passed gas but not stool. Wound looks good. Plan: Increase miralax to double dose twice per day await bowel movement prior to discharge Encourage ambulation Switch to oral antibiotics check cbc in AM saline lock IV Subjective: I've passed gas but no stool Objective: Vital Signs Temp Pulse Resp BP Pulse Ox 37.2 C 63 18 115/71 94 11/20/18 04:00 11/20/18 04:00 11/20/18 04:00 11/20/18 04:00 11/20/18 04:00 Laboratory Results 11/19/18 04:22 11/19/18 04:22 11/19/18 11/20/18 11/21/18 05:59 05:59 05:59 Intake Total 3610.1 1427 Output Total 810 Balance 2800.1 1427 - Time Spent With Patient Time Spent With Patient: 15 Physical Exam - Physical Exam General Appearance: WD/WN, alert, no apparent distress Rectal: other (perineal wound is clean an begining to granulate) Skin: normal color, warm/dry Extremities: normal range of motion, non-tender, normal inspection ICD10 Worksheet Patient Problems: Problems Problem Status Onset Rectal pain Acute Alcohol intoxication Acute Dehydration Acute Forehead laceration Acute
[2018-11-20] MEDS: LACOSAMIDE 50 MG TAB PO SCH ×2 (08:54→20:30)
[2018-11-20] MEDS: SENNOSIDES/DOCUSATE SODIUM TAB PO SCH ×2 (08:54→20:31)
[2018-11-20] MEDS: ENOXAPARIN 40 MG/0.4 ML SYR SC SCH (08:54)
[2018-11-20] MEDS: TAMSULOSIN HCL 0.4 MG CAP PO SCH (08:54)
[2018-11-20] MEDS: AMOXICILLIN/CLAVULANATE POT 875/125 MG TAB PO SCH ×2 (09:06→20:31)
[2018-11-20] MEDS: POLYETHYLENE GLYCOL 3350 17 GM PKT PO SCH ×2 (09:07→20:39)
[2018-11-20] MEDS: KETOROLAC 30 MG/1 ML SDV IVP SCH ×2 (11:46→17:47)
[2018-11-20] MEDS: ONDANSETRON 4 MG/2 ML VIAL IVP PRN (12:15)
--- NOTE | 2018-11-20 13:49 | SOAPPROG ---
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 * F/E/N: We stopped his tube feeding as it seemed to be causing constipation and remove the PEG tube since he can eat and swallow. I wonder if the severe nausea and dry heaving is coming from Augmentin. Is not clear that he really needs antibiotics with the drain in place. * Left perirectal abscess with posterior fistula: POD #2 I&D; doing well with much less pain * Seizure disorder: cont. meds; followed by neurology Subjective: Yesterday he was feeling much better and pain was under excellent control. We also had PEG removed since he was not using it any longer. This morning he is having nausea and dry heaves again seem to start after he took an oral medication at about 9 AM. He just has some pain and his perirectal/anal area but otherwise much better controlled since draining. Objective: Vital Signs Temp Pulse Resp BP Pulse Ox 37.1 C 674 H 16 110/70 98 11/20/18 11:33 11/20/18 11:33 11/20/18 11:33 11/20/18 11:33 11/20/18 11:33 Laboratory Results 11/19/18 04:22 11/19/18 04:22 11/19/18 11/20/18 11/21/18 05:59 05:59 05:59 Intake Total 3610.1 1427 Output Total 810 Balance 2800.1 1427 Physical Exam - Physical Exam General Appearance: alert, other (dry heaves) Respiratory: lungs clear Cardiac/Chest: regular rate, rhythm Abdomen: normal bowel sounds, soft ICD10 Worksheet Patient Problems: Problems Problem Status Onset Rectal pain Acute Alcohol intoxication Acute Dehydration Acute Forehead laceration Acute
--- NOTE | 2018-11-20 15:16 | ASMTCMCOM ---
CM Note CM Note Notes: CM met with pt. Pt states that his number in the chart [phone] is a land line because cell phone services does not work in [place]. RN recommended RN HC due to his wound. CM made a referral to [facility] RN and they accepted him. CM to follow. Plan: [facility] HC RN Date Signed: 11/20/2018 03:15 PM Electronically Signed By:Betsy Noriega
--- NOTE | 2018-11-20 20:36 | HOSPPROG ---
Hospitalist Progress Note Assessment/Plan: #Left perirectal abscess with posterior fistula -POD #2 I&D -pain not controlled, add oxycodone -changed to Augmentin #Nausea: negative AXR # Urinary retention, acute: Flomax, bourgeois replaced #Constipation, chronic issue unclear if related to his tube feeds. #h/o SCC head/neck: s/p radiation and chemotherapy. In remission -G-tube removed #Protein caloric malnutrition -doesn't want G-tube; removed today -dietary consult #Seizure: home meds #DVT ppx: Lovenox Disp: inpatient admission for pain control, wound care Subjective: nauseated after taking abx. Rectal pain worse today Objective: Vital Signs Temp Pulse Resp BP Pulse Ox 36.6 C 52 L 16 106/71 98 11/20/18 20:00 11/20/18 20:00 11/20/18 20:00 11/20/18 20:00 11/20/18 20:00 Laboratory Results 11/19/18 04:22 11/19/18 04:22 11/19/18 11/20/18 11/21/18 05:59 05:59 05:59 Intake Total 3610.1 1427 480 Output Total 810 900 Balance 2800.1 1427 -420 - Time Spent With Patient Time Spent with Patient: greater than 35 minutes Time Spent with Patient: Greater than 35 minutes spent on this patients care, greater than 50% of time spent counseling, educating, and coordinating care regarding the above mentioned plan. - Physical Exam Constitutional: uncomfortable Ears, Nose, Mouth, Throat: moist mucous membranes Cardiovascular: regular rate and rhythym Respiratory: no respiratory distress Gastrointestinal: normoactive bowel sounds Genitourinary: perirectal lesion (abscess site clean, no surrounding redness or drainage) Skin: warm Musculoskeletal: full muscle strength Neurologic: AAOx3 ICD10 Worksheet Patient Problems: Problems Problem Status Onset Rectal pain Acute Alcohol intoxication Acute Dehydration Acute Forehead laceration Acute
[2018-11-21] MEDS: KETOROLAC 30 MG/1 ML SDV IVP SCH ×4 (00:06→18:51)
[2018-11-21] MEDS: LIDOCAINE 2% JELLY 6 ML TOPICAL SYR TP PRN ×4 (00:18→22:03)
[2018-11-21 05:05] LABS: PLATELET COUNT 152 10^3/uL (150-400)
[2018-11-21] MEDS: ACETAMINOPHEN 500 MG TAB PO SCH ×3 (06:50→22:03)
[2018-11-21] MEDS: TAMSULOSIN HCL 0.4 MG CAP PO SCH (08:52)
[2018-11-21] MEDS: POLYETHYLENE GLYCOL 3350 17 GM PKT PO SCH ×2 (08:53→20:35)
[2018-11-21] MEDS: AMOXICILLIN/CLAVULANATE POT 875/125 MG TAB PO SCH ×2 (08:53→20:41)
[2018-11-21] MEDS: ENOXAPARIN 40 MG/0.4 ML SYR SC SCH (08:53)
[2018-11-21] MEDS: LACOSAMIDE 50 MG TAB PO SCH ×2 (08:53→20:35)
[2018-11-21] MEDS: SENNOSIDES/DOCUSATE SODIUM TAB PO SCH ×2 (08:53→20:34)
--- NOTE | 2018-11-21 09:03 | SOAPPROG ---
SOAP Progress Note Assessment/Plan: Assessment: doing well/ having bm today/ afebrile Plan:possibly home today/ office fu 11/21/18 09:02 Objective: Vital Signs Temp Pulse Resp BP Pulse Ox 36.7 C 53 L 15 108/67 95 11/21/18 07:53 11/21/18 07:53 11/21/18 07:53 11/21/18 07:53 11/21/18 07:53 Laboratory Results 11/21/18 04:30 11/19/18 04:22 11/20/18 11/21/18 11/22/18 05:59 05:59 05:59 Intake Total 1427 830 Output Total 1375 Balance 1427 -545 ICD10 Worksheet Patient Problems: Problems Problem Status Onset Rectal pain Acute Alcohol intoxication Acute Dehydration Acute Forehead laceration Acute
--- NOTE | 2018-11-21 11:13 | PDIAF ---
- Diagnosis Diagnosis: perirectal abscess Code Status: Full Code - Medication Management Discharge Medications: electronically signed and located in the Home Medication List. - Orders Services needed: Home Care, Registered Nurse Home Care Face to Face: I certify that this patient was under my care and that I had the required [id number] encounter meeting the encounter requirements on the discharge day. My findings support the fact that the patient is homebound as defined in Home Care Face to Face Continued: CMS Chapter 7 Medicare Benefits Manual 30.1.1 , The condition of the patient is such that there exists a normal inability to leave home and consequently, leaving home would require a considerable and taxing effort. Diet Recommendation: no restrictions on diet, other Diet Texture: Regular Texture Diet Additional Instructions: Clean perineum with a hand held shower after each bowel movement AND 1- 3x/day for first week 2- 2x/day for second week 3- 1x/day until healed fu next week with Dr Bermudez [phone] - Follow Up Care Current Providers and Referrals: Randy Bermudez MD [Medical Doctor] - (Follow up in 3 weeks ( or sooner if issues)) NONE *PRIMARY CARE P,. [Primary Care Provider] - As per Instructions
--- NOTE | 2018-11-21 11:15 | SOAPPROG ---
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 He should f/u regular schedule with Dr. Vela. * F/E/N: Off tube feeding and PEG tube removed. Met with nutrition * Left perirectal abscess with posterior fistula: POD #3 I&D; doing well with much less pain * Seizure disorder: cont. meds; followed by neurology Subjective: Nausea waxes and wanes. Better this am. Objective: Vital Signs Temp Pulse Resp BP Pulse Ox 36.7 C 53 L 15 108/67 95 11/21/18 07:53 11/21/18 07:53 11/21/18 07:53 11/21/18 07:53 11/21/18 07:53 Laboratory Results 11/21/18 04:30 11/19/18 04:22 11/20/18 11/21/18 11/22/18 05:59 05:59 05:59 Intake Total 1427 830 Output Total 1375 Balance 1427 -545 Physical Exam - Physical Exam General Appearance: no apparent distress Abdomen: normal bowel sounds, non-tender, soft ICD10 Worksheet Patient Problems: Problems Problem Status Onset Rectal pain Acute Alcohol intoxication Acute Dehydration Acute Forehead laceration Acute
--- NOTE | 2018-11-21 12:53 | GDS ---
[f rep st] DISCHARGE SUMMARY DISCHARGE DIAGNOSES: 1. Perirectal abscess. 2. Constipation. 3. Nausea. 4. Urinary retention. 5. History of squamous cell carcinoma head and neck, status post radiation and chemotherapy, in remission. 6. Protein caloric malnutrition. 7. Seizure. CONSULTATIONS: 1. Surgery who performed I and D of abscess. 2. Oncology. HISTORY OF PRESENT ILLNESS: A pleasant 58-year-old male with squamous cell of the head and neck, status post XRT radiation with a G-tube, who completed chemo and radiation approximately 2 weeks ago. He had ongoing constipation and developed rectal pain. Denies fevers but had some chills and sweats. He had been self-disimpacting stool. HOSPITAL COURSE BY PROBLEM: 1. Left perirectal abscess with posterior fistula: This was I and D'd by Dr. Kraft. He is to continue local wound care. Will complete 7 days of antibiotics, transition to Augmentin. We will provide a few oxycodone with scheduled Tylenol and Advil as needed. Follow up with Dr. Bermudez. 2. Nausea: He had a negative abdominal x-ray. 3. Urine urinary retention: This was acute. He was given Flomax. 4. Constipation: This is a chronic issue. He thinks it was related to his tube feeds. He is now stooling. Will schedule MiraLAX and senna. 5. History of squamous cell carcinoma head/neck: Status post radiation and chemotherapy. He is in remission. G-tube was removed. He is tolerating p.o. Will provide Boost at home. 6. Protein caloric malnutrition: Insurance is covering Boost supplementation, which he should continue. 7. Seizures: Continue home medications. DISPOSITION: Patient is stable for discharge home with home furnishings sales representative. NEW MEDICATIONS: See medication reconciliation. FOLLOWUP: 1. Oncology. 2. Primary care physician. PHYSICAL EXAM: VITAL SIGNS: Today temperature 36.6, blood pressure 132/71, heart rate in the 50s, respirations 15, 92% on room air. GENERAL: He is cachectic. No acute distress. HEENT: PERRLA. Moist mucous membranes. CV: Regular rate and rhythm. LUNGS: Clear. ABDOMEN: Soft. : Perirectal abscess, dressed. PSYCH: Alert and oriented x3. TIME SPENT ON DISCHARGE: Greater than 30 minutes coordinating with case management, bedside with patient. /[id number]/MODL Addendum: patient did not discharge due to increased rectal pain. Fell last night, did not pass out per RN. Continue pain control here MTDD
--- NOTE | 2018-11-21 14:42 | ASMTLACE ---
KEVIN Length of stay for Answers: 3 days current admission Acuity / Level of Answers: No Care: Did the patient have an inpatient admission? Comorbidities - select Answers: Any tumor (including all that apply lymphoma or leukemia) Other Notes: seizure disorder, enter al feeding tube # of Emergency department Answers: 1-2 visits in the last 6 months Social determinants Answers: Lack of community resources and/or lack of social support (no pcp, lives alone, transportation, nic d) Score: 11 Date Signed: 11/21/2018 02:40 PM Electronically Signed By:Betsy Noriega
--- NOTE | 2018-11-21 14:42 | ASMTDCNOTE ---
Case Management Discharge Discharge Order Complete? Answers: Yes Patient to Obtain Answers: Independently Medications Discharge Comments Notes: Pt is set up with Gretta [facility]A RN. CM confirmed with [facility] RN about his discharge date. CM set up a follow up appt at Dr. Bermudez on November 26 at 3pm. No other CM needs at this time. Date Signed: 11/21/2018 02:40 PM Electronically Signed By:Betsy Noriega
[2018-11-22] MEDS: KETOROLAC 30 MG/1 ML SDV IVP SCH ×2 (00:37→06:15)
[2018-11-22] MEDS: oxyCODONE IR 5 MG TAB PO PRN ×5 (04:44→22:54)
[2018-11-22] MEDS: LIDOCAINE 2% JELLY 6 ML TOPICAL SYR TP PRN ×3 (04:47→20:29)
[2018-11-22] MEDS: ACETAMINOPHEN 500 MG TAB PO SCH ×3 (06:14→20:30)
[2018-11-22] MEDS: POLYETHYLENE GLYCOL 3350 17 GM PKT PO SCH ×3 (09:23→20:29)
[2018-11-22] MEDS: AMOXICILLIN/CLAVULANATE POT 875/125 MG TAB PO SCH ×2 (09:23→20:29)
[2018-11-22] MEDS: SENNOSIDES/DOCUSATE SODIUM TAB PO SCH ×2 (09:24→20:30)
[2018-11-22] MEDS: LACOSAMIDE 50 MG TAB PO SCH ×2 (09:24→20:29)
[2018-11-22] MEDS: TAMSULOSIN HCL 0.4 MG CAP PO SCH (09:24)
[2018-11-22] MEDS: ENOXAPARIN 40 MG/0.4 ML SYR SC SCH (09:24)
[2018-11-22] MEDS: IBUPROFEN 600 MG TAB PO PRN ×2 (09:34→15:34)
--- NOTE | 2018-11-22 10:32 | HOSPPROG ---
Hospitalist Progress Note Assessment/Plan: #Left perirectal abscess with posterior fistula -s/p I&D -pain not controlled. Add Advil, IV morphine. Cont lidocaine -Augmentin #Nausea: negative AXR # Urinary retention, acute: Flomax #Constipation, chronic issue unclear if related to his tube feeds. #h/o SCC head/neck: s/p radiation and chemotherapy. In remission -G-tube removed #Protein caloric malnutrition -doesn't want G-tube; removed today -dietary consult #Seizure: home meds #DVT ppx: Lovenox Disp: inpatient admission for pain control, wound care Subjective: patient stayed overnight. Increased rectal pain after BMs and washing area Objective: Vital Signs Temp Pulse Resp BP Pulse Ox 36.6 C 56 L 18 123/80 H 98 11/22/18 04:00 11/22/18 04:00 11/22/18 04:00 11/22/18 04:00 11/22/18 04:00 Laboratory Results 11/21/18 04:30 11/19/18 04:22 11/21/18 11/22/18 11/23/18 05:59 05:59 05:59 Intake Total 830 1500 Output Total 1375 1250 Balance -545 250 - Time Spent With Patient Time Spent with Patient: greater than 35 minutes Time Spent with Patient: Greater than 35 minutes spent on this patients care, greater than 50% of time spent counseling, educating, and coordinating care regarding the above mentioned plan. - Physical Exam Constitutional: uncomfortable, cachectic Eyes: PERRL Ears, Nose, Mouth, Throat: moist mucous membranes Cardiovascular: regular rate and rhythym Respiratory: no respiratory distress Gastrointestinal: normoactive bowel sounds Genitourinary: other (left perirectal abcess with granulation tissue. Small purulence) Skin: warm Musculoskeletal: full muscle strength Neurologic: AAOx3 ICD10 Worksheet Patient Problems: Problems Problem Status Onset Rectal pain Acute Alcohol intoxication Acute Dehydration Acute Forehead laceration Acute
--- NOTE | 2018-11-22 15:08 | ASMTCMCOM ---
CM Note CM Note Notes: CM reviewed chart with RN. RN reports that pt did not discharge last night because he fall and is in pain. RN reports that he is agitated and struggling with his pain. RN reports that he will hopefully discharge tomorrow if and when medically stable. Pt is set up with [facility] RN. CM called and let [facility] know the plan. Pt will need support on a ride home when discharged. Plan: [facility] RN Date Signed: 11/22/2018 03:07 PM Electronically Signed By:Betsy Noriega
[2018-11-22] MEDS: ONDANSETRON DISINTEGRATING 4 MG TAB PO PRN (22:56)
[2018-11-23] MEDS: LIDOCAINE 2% JELLY 6 ML TOPICAL SYR TP PRN ×2 (03:20→11:32)
[2018-11-23] MEDS: oxyCODONE IR 5 MG TAB PO PRN (06:23)
[2018-11-23] MEDS: ACETAMINOPHEN 500 MG TAB PO SCH (06:24)
[2018-11-23 09:31] VITALS: BP 122/77
[2018-11-23] MEDS: SENNOSIDES/DOCUSATE SODIUM TAB PO SCH (09:40)
[2018-11-23] MEDS: ENOXAPARIN 40 MG/0.4 ML SYR SC SCH (09:40)
[2018-11-23] MEDS: TAMSULOSIN HCL 0.4 MG CAP PO SCH (09:40)
[2018-11-23] MEDS: LACOSAMIDE 50 MG TAB PO SCH (09:40)
[2018-11-23] MEDS: AMOXICILLIN/CLAVULANATE POT 875/125 MG TAB PO SCH (09:40)
[2018-11-23] MEDS: POLYETHYLENE GLYCOL 3350 17 GM PKT PO SCH (09:41)
--- NOTE | 2018-11-23 11:05 | HOSPPROG ---
Hospitalist Progress Note Assessment/Plan: #Left perirectal abscess with posterior fistula -s/p I&D -pain not controlled. Add Advil, IV morphine. Cont lidocaine -Augmentin #Nausea: negative AXR # Urinary retention, acute: Flomax #Constipation, chronic issue unclear if related to tube feeds. Having BMs. Cont Miralax #h/o SCC head/neck: s/p radiation and chemotherapy. In remission -G-tube removed #Protein caloric malnutrition -doesn't want G-tube; removed today -dietary consult #Seizure: home meds #DVT ppx: Lovenox Disp: inpatient admission for pain control, wound care Subjective: pain not controlled Objective: Vital Signs Temp Pulse Resp BP Pulse Ox 36.9 C 71 18 122/77 H 96 11/23/18 09:29 11/23/18 09:29 11/23/18 09:29 11/23/18 09:29 11/23/18 09:29 Laboratory Results 11/21/18 04:30 11/19/18 04:22 11/22/18 11/23/18 11/24/18 05:59 05:59 05:59 Intake Total 1500 1000 Output Total 1250 1050 Balance 250 -50 - Time Spent With Patient Time Spent with Patient: greater than 35 minutes Time Spent with Patient: Greater than 35 minutes spent on this patients care, greater than 50% of time spent counseling, educating, and coordinating care regarding the above mentioned plan. - Physical Exam Constitutional: uncomfortable, cachectic Eyes: PERRL Ears, Nose, Mouth, Throat: moist mucous membranes Cardiovascular: regular rate and rhythym Respiratory: no respiratory distress Gastrointestinal: normoactive bowel sounds Genitourinary: other (abscess, granulated tissue) Musculoskeletal: full muscle strength Neurologic: AAOx3, CN II-XII Intact Psychiatric: poor insight ICD10 Worksheet Patient Problems: Problems Problem Status Onset Alcohol intoxication Acute Dehydration Acute Forehead laceration Acute Rectal pain Acute
[2018-11-23] MEDS ORDERED: PREPARATION H 51 GM CRTUBE PR PRN (12:28)
--- NOTE | 2018-11-23 13:18 | PDIAF ---
- Diagnosis Diagnosis: perirectal abscess Code Status: Full Code - Medication Management Discharge Medications: electronically signed and located in the Home Medication List. - Orders Services needed: Home Care, Registered Nurse Home Care Face to Face: I certify that this patient was under my care and that I had the required [id number] encounter meeting the encounter requirements on the discharge day. My findings support the fact that the patient is homebound as defined in Home Care Face to Face Continued: CMS Chapter 7 Medicare Benefits Manual 30.1.1 , The condition of the patient is such that there exists a normal inability to leave home and consequently, leaving home would require a considerable and taxing effort. Diet Recommendation: no restrictions on diet, other Diet Texture: Regular Texture Diet Additional Instructions: Clean perineum with a hand held shower after each bowel movement AND 1- 3x/day for first week 2- 2x/day for second week 3- 1x/day until healed Follow up appt with with Dr Bermudez [address], [place] [address] ([phone]) on November 26 at 3:00 PM with Maria Esther VALVERDE. Can take 400mg Advil three times a day as needed for the next 5 days. Then try to decrease use. Take with food - Follow Up Care Current Providers and Referrals: Randy Bermudez MD [Medical Doctor] - (Follow up in 3 weeks ( or sooner if issues)) NONE *PRIMARY CARE P,. [Primary Care Provider] - As per Instructions
--- NOTE | 2018-11-23 13:46 | ASMTCMCOM ---
CM Note CM Note Notes: Patient left AMA. [facility] ordered. Unclear as to where patient actually went. CM available should other needs arise. Plan: C Date Signed: 11/23/2018 01:45 PM Electronically Signed By:Sharon Juares RN
--- NOTE | 2018-11-24 02:05 | GDS ---
[f rep st] DISCHARGE SUMMARY DISCHARGE DIAGNOSES: 1. Perirectal abscess, constipation, nausea, vomiting. urinary retention. 2. History of SSC of head and neck, status post radiation/chemo, in remission. 3. Protein caloric malnutrition. 4. Seizure. Please see discharge summary dated 11/21/2018 for full hospital course. Patient had planned for disc harge but stated he had passed out. Since that time of concern of possible malingering as patient is outside smoking cigarettes. He then states he cannot walk or be home alone. Today patient was seen outside with a pillowcase, so it appears he left AWOL without his medications. Of note, his labs have been stable throughout hospitalization. Was trying to repeat today, but he re fused. He was hemodynamically stable. PHYSICAL EXAMINATION: VITAL SIGNS: Today, temperature of 36.9, blood pressure 122/77, heart rate in the 70s, respirations 16, 96% on room air. GENERAL: Cachectic. He is agitated. HEENT: PERRLA. MUSCULOSKELETAL: He is moving all 4 extremities. NEURO: 2 through 12 intact. PSYCH: He is alert and oriented x3. Very agitated, yelling, stating no one is helping him. He does not recall me being his doctor. DISPOSITION: Again, patient appeared to leave AWOL. DISCHARGE MEDICATIONS: Which he left here: Oxycodone, Augmentin. FOLLOWUP PLAN: Dr. Bermudez. /[id number]/MODL
--- NOTE | 2018-11-24 10:02 | ASDISCHSUM ---
Discharge Information Plan Status:Home with Home Health Medically Cleared to Leave:11/23/2018 Discharge Date:11/23/2018 01:30 PM CM D/C Disposition:Home Health Service [facility] D/C Disposition:[id number] Projected Discharge Date:11/20/2018 11:00 AM Transportation at D/C: Discharge Delay Reason: Follow-Up Date:11/20/2018 11:00 AM Discharge Slot: Final Diagnosis: Placement Information Referral Type:*Home Health Care Services Referral ID:[id number] Provider Name:[facility] Address 1:[address] Address 2: City:[place] Selection Factors: State:[place] Patient Contact Information Contact Name:RONALD Relationship:Friend Address:[facility] [address] Work Phone: City:[place] Alternate Phone: [facility]/Zip Code:[place] [address] Email: Financial Information Financial Class:Medicaid Primary Plan Desc:[place] Primary Plan Number:[id number] Secondary Plan Desc: Secondary Plan Number: Assessment Information LACE LACE Length of stay for Answers: 3 days current admission Acuity / Level of Answers: No Care: Did the patient have an inpatient admission? Comorbidities - select Answers: Any tumor (including all that apply lymphoma or leukemia) Other Notes: seizure disorder, enter al feeding tube # of Emergency department Answers: 1-2 visits in the last 6 months Social determinants Answers: Lack of community resources and/or lack of social support (no pcp, lives alone, transportation, nic d) Score: 11 Date Signed: 11/21/2018 02:40 PM Electronically Signed By:Betsy Noriega [facility] CM Progress Note CM Note CM Note Notes: Pt admitted for abnormal pelvis CT scan and pain control r/t severe rectal pain that has been getting worse over the past 2-4 days. Pt's PMH includes squamous cell carcinoma of the head and neck, and a seizure disorder. Pt receives all of his nutrition through a G-tube at this time. Pt had been receiving chemo and radiation since July but completed treatments ~2 wks ago. Pt is followed by Dr Itz Vela. Per chart review, it also appears pt is followed/familiar to Oncology Nurse Navigator, Deborah La ([phone]). Pt had been admitted in 08/12/18 for dysphagia, constipation and FTT; pt was d/c'd w/[facility] to provide enteral feeding supplies. Pt lives alone in [place]. Pt has a friend Adrian Lopez listed as NOK/Emergency Contact. Exact DC needs TBD. OT/CANDY MAKER evals ordered. CM to follow. Date Signed: 11/16/2018 04:02 PM Electronically Signed By:Anjali Martinez RN [facility] Progress Note CM Note CM Note Notes: CM met with pt in his room. Pt states he is "ready to " and is "okay with it" but wishes it would be over quickly. CM spoke with him about having Spiritual Care meet with him, but he declined. States he just wants to not hurt so much. CM put in a Palliative Care order for him. Pt has not yet been seen by OT or CANDY MAKER. (CANDY MAKER made attempt but pt was unavailable.) CM will continue to follow. CM D/C plan: TBD Date Signed: 11/17/2018 01:21 PM Electronically Signed By:Kimberli Whitney [facility] CM Progress Note CM Note CM Note Notes: CM met with pt. Pt states that his number in the chart [phone] is a land line because [employer] does not work in [place]. RN recommended RN HC due to his wound. CM made a referral to [facility] RN and they accepted him. CM to follow. Plan: [facility] RN Date Signed: 11/20/2018 03:15 PM Electronically Signed By:Betsy Noriega Case Management Discharge Plan Note Case Management Discharge Discharge Order Complete? Answers: Yes Patient to Obtain Answers: Independently Medications Discharge Comments Notes: Pt is set up with [facility] RN. CM confirmed with [facility] RN about his discharge date. CM set up a follow up appt at Dr. Bermudez on November 26 at 3pm. No other CM needs at this time. Date Signed: 11/21/2018 02:40 PM Electronically Signed By:Betsy Noriega [facility] CM Progress Note CM Note CM Note Notes: CM reviewed chart with RN. RN reports that pt did not discharge last night because he fall and is in pain. RN reports that he is agitated and struggling with his pain. RN reports that he will hopefully discharge tomorrow if and when medically stable. Pt is set up with [facility]. CM called and let [facility] know the plan. Pt will need support on a ride home when discharged. Plan: [facility] RN Date Signed: 11/22/2018 03:07 PM Electronically Signed By:Betsy Noriega [facility] CM Progress Note CM Note CM Note Notes: Patient left [facility] ordered. Unclear as to where patient actually went. CM available should other needs arise. Plan: [facility] Date Signed: 11/23/2018 01:45 PM Electronically Signed By:Sharon Juares RN Intervention Information
== END 2018-11-23 13:30 | disposition left against medical advice (07) | DRG 231 ==
LOC: F1N 13:22 → OBSVTOIN 11-17 16:34
PROVIDERS: ADMIT Internal Medicine; ATTEND Internal Medicine
PROC: 0D9P0ZZ Drainage of Rectum, Open Approach (ICD-10-PCS; principal; 2018-11-18 21:00)
PROC: 0DBP0ZZ Excision of Rectum, Open Approach (ICD-10-PCS; principal; 2018-11-18 21:00)
PROC: 0DP6XUZ Removal of Feeding Device from Stomach, External Approach (ICD-10-PCS; 2018-11-19)
DX: K61.1 Rectal abscess (principal); E46 Unspecified protein-calorie malnutrition; E86.9 Volume depletion, unspecified; K59.00 Constipation, unspecified; R33.9 Retention of urine, unspecified; G40.909 Epilepsy, unspecified, not intractable, without status epilepticus; K64.4 Residual hemorrhoidal skin tags; Z72.0 Tobacco use; Z76.5 Malingerer [conscious simulation]; Z85.820 Personal history of malignant melanoma of skin; Z93.1 Gastrostomy status
CPT/HCPCS: 96374; G0378; J1100; J1170; J1335; J1650; J1885; J2060; J2250; J2270; J2370; J2405; J2550; J2704; J3010; J3480; Q9967